=== PATIENT | male | born 1950 | race Caucasian/White ===

== ENCOUNTER 2025-03-26 18:52 | Emergency (ER) | payer MEDICARE, MEDICAID, SELFPAY ==
[2025-03-26] VITALS (20 sets, daily range): BP systolic 156–191; BP diastolic 77–96; PULSE 60–93; RESP 13–24; TEMP 36.4; O2SAT 96–100
--- NOTE | ~2025-03-26 | CT_ITS ---
EXAMINATION: CT brain wo con DATE: 03/26/2025 19:58 INDICATION: Weakness. TECHNIQUE: Computed tomography (CT) of the head was performed without intravenous contrast. The mA was adjusted according to patient size. Iterative reconstruction technique was employed. The dose-length product was 605.33 mGy-cm. COMPARISON: None FINDINGS: No acute intracranial bleed or extra-axial collections. Age- appropriate symmetric cerebral cortical atrophy. Chronic small vessel ischemic change. Mildly dilated lateral ventricles suggests mild degree of normal pressure hydrocephalus. No midline shift. IMPRESSION: 1. No acute intracranial lesions. 2. Chronic small vessel ischemic change. Suggestion of mild ventriculomegaly as mentioned above. Reviewed, dictated and finalized at location T. CE SHIFT COMMANDER
--- NOTE | ~2025-03-26 | CT_ITS ---
EXAMINATION: CT chest, abdomen and pelvis without contrast: DATE: 03/26/2025 INDICATION: Weakness, renal failure. TECHNIQUE: CT through chest abdomen and pelvis was performed without IV contrast and reviewed in multiple projections. COMPARISON: None. FINDINGS: No acute pulmonary lesions. No lymphadenopathy or effusion. Cardiomegaly is noted with mild ectasia of ascending aorta measuring 41 mm. Severe multivessel coronary artery calcifications. Significant calcific changes of aortic valve cusps. Below the diaphragm, no definite focal lesions of liver and spleen. Pancreas shows no acute findings. Significant diffuse fecal impaction of the colon especially severe impaction of the rectum. Gan catheter is noted within the bladder. Mild bilateral hydronephrosis. No free fluid or free air. IMPRESSION: 1. Limited noncontrast examination is not optimal to evaluate solid viscera, neoplasms and vascular structures. 2. No focal pulmonary lesions of acute nature. 3. Cardiomegaly with significant multivessel coronary artery calcifications. Calcific changes of aortic valve cusps indicating some degree of aortic stenosis. Please correlate with echocardiographic findings. 4. Severe fecal impaction of the rectum with large rectal fecal mass. Mild bilateral hydronephrosis without calculi. Reviewed, dictated and finalized at location T. S DESIGNER IMPRESSION: 1. Limited noncontrast examination is not optimal to evaluate solid viscera, ne oplasms and vascular structures. 2. No focal pulmonary lesions of acute nature. 3. Cardiomegaly with significant multivessel coronary artery calcifications. Ca lcific changes of aortic valve cusps indicating some degree of aortic stenosis. Please correlate with echocardiographic findings. 4. Severe fecal impaction of the rectum with large rectal fecal mass. Mild bila teral hydronephrosis without calculi.
--- OUTSIDE RECORDS SUMMARY | 2025-03-26 15:44 | XMS_ITS | Encounter Summary ---
Author Organization [facility] Address [facility] [place] [address] Care Team Providers Care Wind Turbine Service Technician Name Role Phone Alireza Lawrence MD Unavailable [phone] Alireza Lawrence MD Primary Care Provider [phone] Encounter Details Date Type Department Care Team (Late st Contact Info) Description 03/26/2025 3:44 PM [facility] Hospital Encounter [facility] [address] [place], [place] [id number] Danita Zelaya NP [address] [place] [id number] Social History Tobacco Use Types Packs/Day Years Used Date Smoking Tobacco: Former Cigarettes Q uit: 1984 Smokeless Tobacco: Never Alcohol Use Standard Drinks/Week Comments Not Currently 0 (1 standard drink = 0.6 oz pur e alcohol) [facility] Utilities Answer Date Recorded In the past 12 months has [employer], gas, oil, or water [employer] threatened to shut off services in your home? No 01/09/2024 Humiliation, Afraid, Rape, a nd Kick questionnaire Answer Date Recorded Within the last year, have y ou been afraid of your partner or ex-partner? Patient unable to answer 01/09/2024 Within the last year, have y ou been humiliated or emotionally abused in other ways by your partner or ex-partner? Patient unable to answer 01/09/2024 Within the last year, have y ou been kicked, hit, slapped, or otherwise physically hurt by your partner or ex-partner? Patient unable to answer 01/09/2024 Within the last year, have y ou been raped or forced to have any kind of sexual activity by your partner or ex-partner? Patient unable to answer 01/09/2024 Overall Financial Resource Strain (CARDIA) Answe r Date Recorded How hard is it for you to pa y for the very basics like food, housing, medical care, and heating? Not hard at all 01/09/2024 PHQ-2 Answer Date Recorded Patient Health Questionnaire-2 Score 0 03/10/2025 Hunger Vital Sign Answer Date Recorded Within the past 12 months, y ou worried that your food would run out before you got the money to buy more. Never true 01/09/20 Within the past 12 months, t he food you bought just didn't last and you didn't have money to get more. Never true 01/09/2024 PRAPARE - Transportation Answer Date Re corded In the past 12 months, has l ack of transportation kept you from medical appointments or from getting medications? Patient unable to answer 01/09/2024 In the past 12 months, has l ack of transportation kept you from meetings, work, or from getting things needed for daily living? Patient unable to answer 01/09/2024 Housing Stability Vital Sign Answer Rahul e Recorded In the last 12 months, was t here a time when you were not able to pay the mortgage or rent on time? No 01/09/2024 In the past 12 months, how m any times have you moved where you were living? 1 01/09/2024 At any time in the past 12 m [facility], were you homeless or living in a nursing home (including now)? No 01/09/2024 Sex and Gender Information Value Date Recorded Sex Assigned at Male 01/14/2025 2:04 PM CDT Legal Sex Male 6:10 PM CIRCUS TRAINER Gender Identity Male 01/14/2025 2:04 PM CDT Sexual Orientation Not on file documented as of this encounter Functional Status * Are you deaf or do you have serious difficulty hearing Answer Date of Assessment Author Status No 01/09/2024 1:03 PM CDT Kimberly Avendaño RN Active * Are you blind or do you have serious difficulty seeing, even when wearing glasses? Answer Date of Assessment Author Status No 01/09/2024 1:03 PM Kimberly Foster RN Active * Do you have serious difficulty walking or climbing stairs? Answer Date of Assessment Author Status No 01/09/2024 1:03 PM Kimberly Foster RN Active * Do you have difficulty dressing or bathing? Answer Date of Assessment Author Status Yes 01/09/2024 1:03 PM Kimberly Foster RN Active * Because of a physical, mental, or emotional condition, do you have difficulty doing errands alone such as visiting a doctor's office or shopping? Answer Date of Assessment Author Status Yes 01/09/2024 1:03 PM Kimberly Foster RN Active documented as of this encounter Mental Status * Because of a physical, mental, or emotional condition, do you have serious difficulty concentrating, remembering, or making decisions? Answer Entry Date Author Status Yes 01/09/2024 1:03 PM Kimberly Foster RN Active documented in this encounter Plan of Treatment Not on file documented as of this encounter Goals Goal Patient Goal Type Associated Problems Recent Progress Patient-Stated? Author Family - family caregiver with be involved in care transitions and discharge planning Lifestyle No Kiana Bowen RN documented as of this encounter Procedures Procedure Name Priority Date/Time Associated Diagnosis Comments VALPROIC ACID Routine 03/26/2025 3:52 PM CIRCUS TRAINER Encounter for therapeutic drug monitoring CBC W/DIFF Routine 03/26/2025 3:52 PM CIRCUS TRAINER Encounter for therapeutic drug monitoring BASIC METABOLIC PANEL Routine 03/26/2025 3:52 PM CIRCUS TRAINER Encounter for therapeutic drug monitoring documented in this encounter Results * (ABNORMAL) BASIC METABOLIC PANEL (03/26/2025 3:52 PM CIRCUS TRAINER) [facility] GLUCOSE 92 70 - 99 MG/DL 03/26/2025 4:18 PM CIRCUS TRAINER [facility] BUN 90(H) 7 - 18 MG/DL 03/26/2025 4:18 PM CIRCUS TRAINER [facility] CREATININE S/P/B 6.17() 0.7 - 1.3 MG/DL 03/26/2025 4:18 PM [facility] Comment: Critical Result(s) Called at: 16:17:50 on 03/26/2025 by: Jaylene Rodriguez to and read back by:DEMI VALDEZ @ [facility] SODIUM S/P/B 139 136 - 145 MMOL/L 03/26/2025 4:18 PM [facility] POTASSIUM S/P/B 5.2(H) 3.5 - 5.1 MMOL/L 03/26/2025 4:18 PM [facility] CHLORIDE S/P/B 107 100 - 108 MMOL/L 03/26/2025 4:18 PM [facility] CO2 22.0 21 - 32 MMOL/L 03/26/2025 4:18 PM [facility] CALCIUM S/P/B 8.5 8.5 - 10.1 MG/DL 03/26/2025 4:18 PM [facility] ANION GAP 10.0 5 - 15 MMOL/L 03/26/2025 4:18 PM [facility] BUN CREATININE RATIO 14.6 6 - 26 03/26/2025 4:18 PM [facility] GFR ESTIMATE 9(L) >90 ML/MIN/1.7 3 M2 03/26/2025 4:18 PM [facility] Comment: NOTE: eGFR is not calculated for patients <18 years of age. This is an estimated GFR calculation using the new CKD EPI creatinine equation without race and so does not require a correction factor for race. This estimated GFR should not be used for calculating drug doses. BLOOD VENOUS BLOOD SPECIMEN / Unknown 03/26/2025 3:52 PM CIRCUS TRAINER us Danita Zelaya [facility] Final Resu lt [facility] [address] [place] [address], [place] [phone] * (ABNORMAL) CBC W/DIFF (03/26/2025 3:52 PM CIRCUS TRAINER) [facility] Signature WBC 8.47 4.4 - 11.0 x10'3/uL 03/26/2025 3:58 PM CIRCUS TRAINER [facility] RBC 3.20(L) 4.50 - 5.90 x10'6/uL 03/26/2025 3:58 PM [facility] HGB 9.6(L) 14.0 - 17.5 G/DL 03/26/2025 3:58 PM [facility] HCT 29.2(L) 41.5 - 50.4 % 03/26/2025 3:58 PM [facility] MCV 91.3 80.0 - 96.0 FL 03/26/2025 3:58 PM [facility] MCH 30.0 26.5 - 31.4 PG 03/26/2025 3:58 PM CIRCUS TRAINER [facility] MCHC 32.9 31.9 - 34.8 G/DL 03/26/2025 3:58 PM [facility] RDW 13.2 12.3 - 14.3 % 03/26/2025 3:58 PM [facility] PLT 170 151 - 353 x10'3/uL 03/26/2025 3:58 PM [facility] MPV 9.9 9.7 - 11.9 FL 03/26/2025 3:58 PM [facility] RBC MORPHOLOGY NORMAL 03/26/2025 3:58 PM [facility] PLT MORPH. NORMAL 03/26/2025 3:58 PM [facility] WBC MORPHOLOGY NORMAL 03/26/2025 3:58 PM CIRCUS TRAINER [facility] LYMPHOCYTES % 9.7(L) 15.8 - 45.0 % 03/26/2025 3:58 PM CIRCUS TRAINER [facility] NEUTROPHILS % 80.7(H) 42.1 - 71.9 % 03/26/2025 3:58 PM CIRCUS TRAINER [facility] MONOCYTES % 6.4 5.7 - 12.5 % 03/26/2025 3:58 PM CIRCUS TRAINER [facility] EOSINOPHILS 2.4 0.0 - 5.6 % 03/26/2025 3:58 PM CIRCUS TRAINER [facility] BASOPHILS 0.6 0.0 - 1.3 % 03/26/2025 3:58 PM CIRCUS TRAINER [facility] ABS. NEUTROPHILS 6.84(H) 1.40 - 6.00 x10'3/uL 03/26/2025 3:58 PM CIRCUS TRAINER [facility] IMMATURE GRANS % 0.2 0.0 - 0.5 % 03/26/2025 3:58 PM CIRCUS TRAINER [facility] ABS. LYMPHOCYTES 0.82 0.80 - 4.70 x10'3/uL 03/26/2025 3:58 PM CIRCUS TRAINER [facility] BLOOD VENOUS BLOOD SPECIMEN / Unknown 03/26/2025 3:52 PM CIRCUS TRAINER us Danita Zelaya [facility] Final Resu lt [facility] [address] [place] [address], * (ABNORMAL) VALPROIC ACID (03/26/2025 3:52 PM CIRCUS TRAINER) VALPROIC ACID 7.1(L) 50 - 100 MCG/ML 03/26/2025 7:41 PM CIRCUS TRAINER [facility] Comment: THERAPEUTIC: 50-100 TOXIC: >150 BLOOD VENOUS BLOOD SPECIMEN / Unknown 03/26/2025 3:52 PM CIRCUS TRAINER us Danita Zelaya [facility] [facility] Final Resu lt [facility] [address] [place] [address], documented in this encounter Visit Diagnoses Diagnosis Encounter for therapeutic drug monitoring documented in this encounter Additional Health Concerns Infection Onset Date Last Indicated Resolved Time ESBL - Extended Spectrum Bet a-lactamase Comment:01/06/24 +ESBL Urine 03/07/24 Urine (RR) 01/06/2024 03/07/2024 Assessment Noted Time PHQ-9 Depression Total Score: 3 10/04/19 24 1:27 PM CDT documented as of this encounter Care Teams Wind Turbine Service Technician Relationship Specialty [place] [address] [place] [address] PCP - General FAMILY PRACTICE 09/13/24 [place] [address] [place] [address] FAMILY PRACTICE 01/06/24 documented as of this encounter
--- NOTE | 2025-03-26 19:13 | ECG_ITS ---
Test Date: 2025-03-26 19:43:55 Measurements Intervals [place] Rate: 71 P: 43 HI: 207 QRS: -71 QRSD: 140 T: 52 QT: 397 QTc: 433 Interpretive Statements SINUS RHYTHM RIGHT BUNDLE BRANCH BLOCK LEFT ANTERIOR FASCICULAR BLOCK CANNOT R/O SEPTAL INFARCT, AGE INDETERMINATE BASELINE ARTIFACT- I, II, III, AVR, AVL, AVF, V2, V4 ABNORMAL ECG No previous ECG available for comparison Electronically Signed On 03-26-2025 19:56:22 IMAGING ENGINEER by Jefferson Valenzuela D.O.
--- NOTE | 2025-03-26 19:13 | ED.GENADULT ---
HPI - General Adult General Chief complaint: Recheck/Abnormal Lab/Rx Stated complaint: ABN LABS, NEEDS DIALYSIS Time Seen by Provider: 03/26/25 19:06 Source: patient, EMS and RN notes reviewed Mode of arrival: EMS Limitations: dementia History of Present Illness HPI narrative: Patient is a 75-year-old male presents to the emergency department by EMS from [facility] for abnormal labs. Patient does not know ice here, patient denies any current complaints of than feeling a little bit cold and wants some blankets. Patient is alert oriented x1, EMS reports a history of dementia and baseline alert and oriented to self. EMS reports that the patient had abnormal labs with a creatinine of 6.1 and the facility wanted to get dialysis. Patient has a history of dialysis and has not had any in years. Patient has a reported history of COPD, hypertension, CKD stage 4, GERD. Related Data Allergies Allergy/AdvReac Type Severity Reaction Status Date / Time finasteride Allergy Unknown Unknown Verified 03/26/25 19:04 hydrocodone Allergy Unknown Unknown Verified 03/26/25 19:04 hydrocortisone Allergy Unknown Unknown Verified 03/26/25 19:04 Review of Systems Review of Systems: ROS unobtainable: Yes unobtainable due to mental status Exam Narrative: CONST: No acute distress. HENMT: Head is normocephalic and atraumatic. Tacky mucous membranes. No posterior oropharynx erythema. EYES: No scleral icterus. No conjunctival injection or pallor. PERRL. NECK: No meningeal signs. RESP: Able to speak in full sentences. Normal respiratory effort. CTAB. CARDIO: Regular rate. [Regular] rhythm. 2+ DP and radial pulses bilaterally. GI: Nondistended. No tenderness to palpation. Soft. : No CVA tenderness to palpation. Gan catheter in place draining straw cloudy colored urine. SKIN: No rashes or lesions noted on exposed skin. NEURO: Oriented x1. Moves all extremities. Follows basic commands. EXTREM/MSK/BACK: No pedal edema. PSYCH: Normal affect. Course Vital Signs Vital signs: Vital Signs Temperature 97.6 F 03/26/25 18:53 Pulse Rate 66 03/26/25 18:53 Respiratory Rate 14 03/26/25 18:53 Blood Pressure 177/90 H 03/26/25 18:53 Pulse Oximetry 100 03/26/25 18:53 Oxygen Delivery Room Air 03/26/25 18:53 Temperature 97.6 F 03/26/25 18:53 Pulse Rate 66 03/26/25 19:37 Respiratory Rate 17 03/26/25 19:37 Blood Pressure 158/84 H 03/26/25 19:37 Pulse Oximetry 100 03/26/25 19:37 Oxygen Delivery Room Air 03/26/25 18:53 [facility] Narrative Medical decision making narrative: Patient presents with the above complaint. Initial vitals are remarkable for no significant abnormalities. Physical examination as noted above. Plan discussed: laboratory analysis, EKG, imaging. Patient ordered continuous cardiac monitoring, continuous pulse oximetry. Records from [facility] reported creatinine of 6.17, primary care physician is Dr. Alireza guillaume for, patient is a full code, patient is listed as is responsible democrat for healthcare decision maker with emergency contact being son whose name is Mark Hernandez and is also listed is the POA whose cell phone number is [phone]. Medical history includes COPD, CKD stage 4, hypertension, polyneuropathy, peripheral vascular disease, BPH, obstructive uropathy, end-stage renal disease, hyperlipidemia, GERD, neuromuscular dysfunction of bladder, anemia, anxiety, depression, dementia. Patient has been in the long-term facility for 193 days. discussion with nurse from long-term facility reports that the patient still makes urine and put out 1 L of urine today. I spoke with the son Mark who is the POA who notes the patient is a full code, does not want any hemodialysis to be performed, discussed plan at this time to hydrate the patient, recheck the metabolic panel and kidney function and ultimately get patient back to his facility with plans to have him be monitored there for his urine output and routine labs to keep an eye on his kidney function which son notes is a reasonable plan and agrees with plan of care. No symptoms a UTI, urine sample was obtained from the Gan catheter in place, no indications to treat for any UTI at this time. No indications for any emergent dialysis, patient is making good urine, repeat BMP obtained. Son also notes he does not want any hemodialysis regardless. Will order a bowel regimen for the patient given the fecal impaction. Repeat BMP shows continued improvement in the creatinine down to 5.64. Differential Diagnosis Differential Diagnosis: Renal failure, UTI, metabolic derangement, electrolyte derangement. Lab Data [facility] Attestation statement: I personally reviewed the patient's lab results. Lab results narrative: CBC reveals a hemoglobin of 9.8. Coags are within normal limits. Comprehensive metabolic panel reveals a sodium 135, chloride 109, bicarb 17, BUN of 85 from a creatinine of 5.89, glucose 132. Lipase is 206. Total creatine kinase is 84. Magnesium is 2.0. Covid flu and RSV testing are negative. 03/26/25 19:33 03/26/25 22:42 Labs: Lab Results 03/26/25 03/26/25 03/26/25 Range/Units 19:33 19:33 19:33 WBC 9.9 (4.5-10.0) K/mm3 RBC 3.25 L (4.6-6.20) M/mm3 Hgb 9.8 L (14.0-18.0) g/dL Hct 30.1 L (42.0-52.0) % MCV 92.6 (80-100) fl MCH 30.2 (26-34) pg MCHC 32.6 (32-36) g/dl RDW 13.4 (11.5-14.5) % Plt Count 181 (150-375) k/mm3 MPV 9.9 (7.4-10.4) fl Immature Gran % (Auto) 0.4 (0-0.5) % Neut % (Auto) 83.8 H (45.5-73.1) % Lymph % (Auto) 7.9 L (18.3-44.2) % Dixon % (Auto) 5.9 (2.6-8.5) % Eos % (Auto) 1.4 (0-4.4) % Baso % (Auto) 0.6 (0.2-1.2) % Lymph # (Auto) 0.78 L (0.9-3.2) K/mm3 Dixon # (Auto) 0.6 (0.1-0.6) K/mm3 Eos # (Auto) 0.1 (0-0.3) K/mm3 Baso # (Auto) 0.1 (0.0-0.1) K/mm3 Abs Immat Gran (auto) 0.04 H (0.00-0.031) K/mm3 Absolute Neuts (auto) 8.3 H (1.3-6.7) K/mm3 Absolute Nucleated RBC 0.000 (0.0-0.012) K/mm3 Nucleated RBC % 0.0 (0.0-0.2) % PT 14.4 (11.1-14.7) Seconds INR 1.1 APTT 28.5 (22.3-36.8) Seconds Sodium 135 L (137-145) mmol/L Potassium 4.9 (3.4-5.0) mmol/L Chloride 109 H (98-107) mmol/L Carbon Dioxide 17 L (22-30) mmol/L Anion Gap 9 (4-12) mmol/L BUN 85 H (9-20) mg/dL Creatinine 5.89 H (0.7-1.3) mg/dL Estim Creat Clear Calc 9 ml/min Estimated GFR 9 L (59 - ) Glucose 132 H (65-110) mg/dL Calcium 9.0 (8.4-10.2) mg/dL Magnesium 2.0 Cancelled (1.6-2.3) mg/dL Total Bilirubin 0.5 (0.2-1.3) mg/dL AST 18 (17-59) U/L ALT 17 (6-50) U/L Alkaline Phosphatase 67 (38-126) U/L Total Creatine Kinase 84 (55-170) U/L Troponin I < 0.012 Pending (0.000-0.034) ng/mL Total Protein 7.0 (6.3-8.2) g/dL Albumin 4.0 (3.5-5.1) g/dL Lipase 206 (23-300) U/L TSH (Reflex) (0.465-4.68) uIU/mL Urine Color (Yellow) Urine Appearance (Clear) Urine pH (5.0-9.0) Ur Specific [place] (1.001-1.035) Urine Protein (Negative) mg/dL Urine Glucose (UA) (Negative) mg/dL Urine Ketones (Negative) mg/dL Ur Blood (Man) (Negative) Urine Nitrate (Negative) Urine Bilirubin (Negative) Urine Urobilinogen (<2.0) mg/dL Add Ur Microanalysis Leukocyte Esterase Rfl (Negative) ROS/UL Urine RBC (0-2) /hpf Urine WBC (0-3) /hpf Ur Squamous Epith Cells (Few) /hpf Urine Bacteria /hpf Urine Casts Urine Yeast (Budding) (None) /hpf Influenza A (RT-PCR) (Negative) Influenza B (RT-PCR) (Negative) RSV (RT-PCR) (Negative) SARS-CoV-2 RNA (RT-PCR) (Negative) 03/26/25 03/26/25 03/26/25 Range/Units 19:33 20:14 22:42 WBC (4.5-10.0) K/mm3 RBC (4.6-6.20) M/mm3 Hgb (14.0-18.0) g/dL Hct (42.0-52.0) % MCV (80-100) fl MCH (26-34) pg MCHC (32-36) g/dl RDW (11.5-14.5) % Plt Count (150-375) k/mm3 MPV (7.4-10.4) fl Immature Gran % (Auto) (0-0.5) % Neut % (Auto) (45.5-73.1) % Lymph % (Auto) (18.3-44.2) % Dixon % (Auto) (2.6-8.5) % Eos % (Auto) (0-4.4) % Baso % (Auto) (0.2-1.2) % Lymph # (Auto) (0.9-3.2) K/mm3 [place] # (Auto) (0.1-0.6) K/mm3 Eos # (Auto) (0-0.3) K/mm3 Baso # (Auto) (0.0-0.1) K/mm3 Abs Immat Gran (auto) (0.00-0.031) K/mm3 Absolute Neuts (auto) (1.3-6.7) K/mm3 Absolute Nucleated RBC (0.0-0.012) K/mm3 Nucleated RBC % (0.0-0.2) % PT (11.1-14.7) Seconds INR APTT (22.3-36.8) Seconds Sodium 136 L (137-145) mmol/L Potassium 4.7 (3.4-5.0) mmol/L Chloride 112 H (98-107) mmol/L Carbon Dioxide 17 L (22-30) mmol/L Anion Gap 7 (4-12) mmol/L BUN 80 H (9-20) mg/dL Creatinine 5.64 H (0.7-1.3) mg/dL Estim Creat Clear Calc 10 ml/min Estimated GFR 10 L (59 - ) Glucose 115 H (65-110) mg/dL Calcium 8.4 (8.4-10.2) mg/dL Magnesium (1.6-2.3) mg/dL Total Bilirubin (0.2-1.3) mg/dL AST (17-59) U/L ALT (6-50) U/L Alkaline Phosphatase (38-126) U/L Total Creatine Kinase (55-170) U/L Troponin I (0.000-0.034) ng/mL Total Protein (6.3-8.2) g/dL Albumin (3.5-5.1) g/dL Lipase Cancelled (23-300) U/L TSH (Reflex) 1.230 (0.465-4.68) uIU/mL Urine Color Yellow (Yellow) Urine Appearance Turbid H (Clear) Urine pH 7.0 (5.0-9.0) Ur Specific [place] 1.012 (1.001-1.035) Urine Protein 2+ H (Negative) mg/dL Urine Glucose (UA) 1+ H (Negative) mg/dL Urine Ketones Negative (Negative) mg/dL Ur Blood (Man) 2+ H (Negative) Urine Nitrate Negative (Negative) Urine Bilirubin Negative (Negative) Urine Urobilinogen 0.2 (<2.0) mg/dL Add Ur Microanalysis Yes Leukocyte Esterase Rfl 3+ H (Negative) ROS/UL Urine RBC 6-10 H (0-2) /hpf Urine WBC >100 H (0-3) /hpf Ur Squamous Epith Cells None seen (Few) /hpf Urine Bacteria 4+ H /hpf Urine Casts 3-5 Urine Yeast (Budding) Present H (None) /hpf Influenza A (RT-PCR) Negative (Negative) Influenza B (RT-PCR) Negative (Negative) RSV (RT-PCR) Negative (Negative) SARS-CoV-2 RNA (RT-PCR) Negative (Negative) Imaging Data Radiologist's impression: ITS Impressions Head CT 03/26/25 20:00 IMPRESSION: 1. No acute intracranial lesions. 2. Chronic small vessel ischemic change. Suggestion of mild ventriculomegaly as mentioned above. Chest/Abdomen/Pelvis CT 03/26/25 20:02 IMPRESSION: 1. Limited noncontrast examination is not optimal to evaluate solid viscera, neoplasms and vascular structures. 2. No focal pulmonary lesions of acute nature. 3. Cardiomegaly with significant multivessel coronary artery calcifications. Calcific changes of aortic valve cusps indicating some degree of aortic stenosis. Please correlate with echocardiographic findings. 4. Severe fecal impaction of the rectum with large rectal fecal mass. Mild bilateral hydronephrosis without calculi. ECG Data EKG #1: Attestation: I personally reviewed and interpreted this ECG as follows: ECG completion date: 03/26/25 ECG completion time: 19:43 Interpretation: Rate of 71, rhythm is sinus rhythm, right bundle-branch block, left anterior fascicular block, baseline artifact, no previous EKG on file for comparison. Discharge Plan Discharge Clinical Impression: Renal failure, Dehydration, Fecal impaction Patient Disposition: NH Longterm/Asst Living Condition: Stable Instructions: Antibiotic Form, Acute Kidney Injury (DC), Chronic Kidney Disease (ED), Fecal Impaction (ED) Additional Instructions: Follow-up with your primary care physician in the next 2-3 days for reassessment, rest and stay well hydrated, take your home medications as prescribed. Take the lactulose as prescribed. Administer enemas as needed. Have your doctor monitor your kidney function with serial labs and also monitor your urine output for any marked decrease. Your son is aware of the results and plan of care, your kidney function is overall improving, son notes that he does not want any hemodialysis to be done. Regardless there is no indications for any emergent hemodialysis. Return immediately to the emergency department for any new or concerning symptoms especially any emergent concerns for life, limb, eyesight. Patient's creatinine progressively improved from 5.89 to 5.64 with fluids, please ensure that the patient states well-hydrated. Patient Language: Amharic Prescriptions: New lactulose 20 gram packet 20 g PO DAILY PRN (Reason: constipation) Qty: 15 0RF bisacodyl 10 mg/30 mL enema 10 mg RECTAL DAILY PRN (Reason: constipation) Qty: 37 0RF bisacodyl 10 mg suppository 10 mg RECTAL DAILY PRN (Reason: constipation) Qty: 30 0RF Follow-up/Referrals: Howard,Alireza Sanderson MD [Primary Care Provider] - 2 Days Stand Alone Forms: Care Home Discharge Time of Disposition: 23:03
[2025-03-26 19:42] LABS: Hematocrit 30.1 % (42.0-52.0); Hemoglobin 9.8 g/dL (14.0-18.0); Immature Granulocyte Percent A 0.4 % (0-0.5); Lymphocytes Absolute Auto 0.78 K/mm3 (0.9-3.2); Mean Corpuscular HGB Conc 32.6 g/dl (32-36); Mean Corpuscular Hemoglobin 30.2 pg (26-34); Mean Corpuscular Volume 92.6 fl (80-100); Nucleated Red Blood Cells Absolute Auto 0.000 K/mm3 (0.0-0.012); Nucleated Red Blood Cells Perc 0.0 % (0.0-0.2); Platelet Count Result 181 k/mm3 (150-375); Red Blood Count 3.25 M/mm3 (4.6-6.20); White Blood Count 9.9 K/mm3 (4.5-10.0)
[2025-03-26 19:53] LABS: INR 1.1; Prothrombin Time 14.4 Seconds (11.1-14.7)
[2025-03-26 19:54] LABS: Partial Thromboplastin Time 28.5 Seconds (22.3-36.8)
[2025-03-26 19:57] LABS: Alanine Aminotransferase 17 U/L (6-50); Albumin Level 4.0 g/dL (3.5-5.1); Alkaline Phosphatase 67 U/L (38-126); Anion Gap 9 mmol/L (4-12); Aspartate Amino Transferase 18 U/L (17-59); Bilirubin,Total 0.5 mg/dL (0.2-1.3); Blood Urea Nitrogen 85 mg/dL (9-20); Calcium 9.0 mg/dL (8.4-10.2); Carbon Dioxide 17 mmol/L (22-30); Chloride 109 mmol/L (98-107); Creatine Kinase 84 U/L (55-170); Estimated CRCL calculation 9 ml/min; Estimated Glomerular Filt Rate 9; Glucose 132 mg/dL (65-110); Lipase 206 U/L (23-300); Magnesium 2.0 mg/dL (1.6-2.3); Potassium 4.9 mmol/L (3.4-5.0); Sodium 135 mmol/L (137-145); Total Protein 7.0 g/dL (6.3-8.2)
[2025-03-26 20:09] LABS: Troponin I < 0.012 ng/mL (0.000-0.034)
[2025-03-26] MEDS: SODIUM CHLORIDE 0.9% IV 1,000 ML 999 ML IV CONT ×2 (20:15→21:00)
[2025-03-26 20:17] LABS: Influenza A QL RT-PCR Negative (Negative); Influenza B QL RT-PCR Negative (Negative); RSV RNA, RT-PCR Negative (Negative); SARS-CoV-2 RNA PCR Negative (Negative)
[2025-03-26 20:29] LABS: Thyroid Stimulating Hormone Reflex 1.230 uIU/mL (0.465-4.68)
[2025-03-26 20:31] LABS: Add Urine Microscopic? YES; Appearance Urine Turbid (Clear); Glucose Urine UA 1+ mg/dL (Negative); Leukocyte Esterase Ur 3+ LEU/UL (Negative); Nitrate Urine Negative (Negative); Specific Grav Ur 1.012 (1.001-1.035)
[2025-03-26 20:59] LABS: Budding Yeast Urine Present /hpf
[2025-03-26 21:01] LABS: Need Manual Microscopic Yes
--- NOTE | 2025-03-26 21:04 | PC.NURSE ---
This RN called pt JACEY Flores per EDP request and asked about pt wishes regarding dialysis and discharge. POA reports no dialysis, but pt is full code. EDP made aware.
--- OUTSIDE RECORDS SUMMARY | 2025-03-26 21:16 | XMS_ITS | Encounter Summary ---
Author Organization [facility] Address [facility] [place] [address] Care Team Providers Care Automatic Shirring Machine Operator Name Role Phone Alireza Lawrence MD Unavailable [phone] Alireza Lawrence MD Primary Care Provider [phone] Encounter Details Date Type Department Care Team (Late st Contact Info) Description 03/26/2025 Orders Only [facility] [address] [place], [place] [id number] Danita Zelaya CLINICAL TRAINING COORDINATOR [address] [place] [phone] Social History Tobacco Use Types Packs/Day Years Used Date Smoking Tobacco: Former Cigarettes Q uit: 1984 Smokeless Tobacco: Never Alcohol Use Standard Drinks/Week Comments Not Currently 0 (1 standard drink = 0.6 oz pur e alcohol) [facility] Utilities Answer Date Recorded In the past 12 months has [employer], gas, oil, or water [facility] threatened to shut off services in your [...] any time in the past 12 m [facility], were you homeless or living in a chcf (including now)? No 01/09/2024 Sex and Gender Information Value Date Recorded Sex Assigned at Male 01/14/2025 2:04 PM CDT Legal Sex Male 6:10 PM MOLD INSERT CHANGER Gender Identity Male 01/14/2025 2:04 PM CDT [...] Bowen RN documented as of this encounter Results * (ABNORMAL) VALPROIC ACID (03/26/2025 3:52 PM MOLD INSERT CHANGER) Pathologist [facility] VALPROIC ACID 7.1(L) 50 - 100 MCG/ML 03/26/2025 7:41 PM MOLD INSERT CHANGER [facility] Comment: THERAPEUTIC: 50-100 TOXIC: >150 BLOOD VENOUS BLOOD SPECIMEN / Unknown 03/26/2025 3:52 PM MOLD INSERT CHANGER us Danita Zelaya CLINICAL TRAINING COORDINATOR LABORATORY Final Resu lt [facility] [address] [place] [address], [place] [phone] * (ABNORMAL) CBC W/DIFF (03/26/2025 3:52 PM MOLD INSERT CHANGER) [facility] WBC 8.47 4.4 - 11.0 x10'3/uL 03/26/2025 3:58 PM [facility] RBC 3.20(L) 4.50 - 5.90 x10'6/uL 03/26/2025 3:58 PM [facility] HGB 9.6(L) 14.0 - 17.5 G/DL 03/26/2025 3:58 PM [facility] HCT 29.2(L) 41.5 - 50.4 % 03/26/2025 3:58 PM [facility] MCV 91.3 80.0 - 96.0 FL 03/26/2025 3:58 PM [facility] MCH 30.0 26.5 - 31.4 PG 03/26/2025 3:58 PM [facility] MCHC 32.9 31.9 - 34.8 G/DL 03/26/2025 3:58 PM [facility] RDW 13.2 12.3 - 14.3 % 03/26/2025 3:58 PM [facility] PLT 170 151 - 353 x10'3/uL 03/26/2025 3:58 PM [facility] MPV 9.9 9.7 - 11.9 FL 03/26/2025 3:58 PM [facility] RBC MORPHOLOGY NORMAL 03/26/2025 3:58 PM [facility] PLT MORPH. NORMAL 03/26/2025 3:58 PM [facility] WBC MORPHOLOGY NORMAL 03/26/2025 3:58 PM [facility] LYMPHOCYTES % 9.7(L) 15.8 - 45.0 % 03/26/2025 3:58 PM [facility] NEUTROPHILS % 80.7(H) 42.1 - 71.9 % 03/26/2025 3:58 PM MOLD INSERT CHANGER [facility] MONOCYTES % 6.4 5.7 - 12.5 % 03/26/2025 3:58 PM [facility] EOSINOPHILS 2.4 0.0 - 5.6 % 03/26/2025 3:58 PM [facility] BASOPHILS 0.6 0.0 - 1.3 % 03/26/2025 3:58 PM [facility] ABS. NEUTROPHILS 6.84(H) 1.40 - 6.00 x10'3/uL 03/26/2025 3:58 PM [facility] IMMATURE GRANS % 0.2 0.0 - 0.5 % 03/26/2025 3:58 PM [facility] ABS. LYMPHOCYTES 0.82 0.80 - 4.70 x10'3/uL 03/26/2025 3:58 PM [facility] BLOOD VENOUS BLOOD SPECIMEN / Unknown 03/26/2025 3:52 PM MOLD INSERT CHANGER us Danita Zelaya NP LABORATORY Final Resu lt [facility] [address] [place] [address], * (ABNORMAL) BASIC METABOLIC PANEL (03/26/2025 3:52 PM MOLD INSERT CHANGER) GLUCOSE 92 70 - 99 MG/DL 03/26/2025 4:18 PM MOLD INSERT CHANGER [facility] BUN 90(H) 7 - 18 MG/DL 03/26/2025 4:18 PM [facility] CREATININE S/P/B 6.17(HH) 0.7 - 1.3 MG/DL 03/26/2025 4:18 PM [facility] Comment: Critical Result(s) Called at: 16:17:50 on 03/26/2025 by: Jaylene Rodriguez to and read back by:DEMI VALDEZ @ [facility] SODIUM S/P/B 139 136 - 145 MMOL/L 03/26/2025 4:18 PM [facility] POTASSIUM S/P/B 5.2(H) 3.5 - 5.1 MMOL/L 03/26/2025 4:18 PM [facility] CHLORIDE S/P/B 107 100 - 108 MMOL/L 03/26/2025 4:18 PM [facility] CO2 22.0 21 - 32 MMOL/L 03/26/2025 4:18 PM [facility] CALCIUM S/P/B 8.5 8.5 - 10.1 MG/DL 03/26/2025 4:18 PM [facility] ANION GAP 10.0 5 - 15 MMOL/L 03/26/2025 4:18 PM [facility] BUN CREATININE RATIO 14.6 6 - 26 03/26/2025 4:18 PM [facility] GFR ESTIMATE 9(L) >90 ML/MIN/1.7 3 M2 03/26/2025 4:18 PM [facility] Comment: NOTE: eGFR is not calculated for patients <18 years of age. This is an estimated GFR calculation using the new CKD EPI creatinine equation without race and so does not require a correction factor for race. This estimated GFR should not be used for calculating drug doses. 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
--- OUTSIDE RECORDS SUMMARY | 2025-03-26 21:16 | XMS_ITS | Clinical Summary ---
Author Organization [facility] Address [address] [place] [address] Care Team Providers Care Associate Professor Of Psychology Name Role Phone Alireza Lawrence MD Unavailable Alireza Lawrence MD Primary Care Provider Allergies Active Allergy Reactions Criticality Noted Date Comments Finasteride Unknown 01/25/2021 Hydrocodone Unknown 01/25/2021 Pt has tolerated dilaudid States can't recall his reaction Hydrocortisone Unknown 01/26/2021 Medications donepezil (ARICEPT) 5 MG Tab Take 2 tablets (10 mg total) by mouth nightly at bedtime. 4 Active omeprazole (PRILOSEC) 20 MG capsuleIndications: Gastroesophageal reflux disease without esophagitis Take 1 capsule (20 mg total) by mouth daily. 30 capsule 1 4 Active amLODIPine (NORVASC) 5 MG tabletIndications:H ypertension, unspecified type Take 1 tablet (5 mg total) by mouth daily. 30 tablet 1 4 Active bethanechol (URECHOLINE) 10 MG tablet Take 1 tablet (10 mg total) by mouth 3 (three) times daily. Active ondansetron (ZOFRAN) 4 MG tablet Take 1 tablet (4 mg total) by mouth every 6 (six) hours as needed for Nausea. 4 Active FLUoxetine (PROZAC) 40 MG capsule Take 1 capsule (40 mg total) by mouth daily. Active calcium carbonate (TUMS) 500 MG chewable tablet Chew 1 tablet (500 mg total) by mouth 3 (three) times daily as needed. 4 Active lidocaine 4 % patch Place 1 patch onto the skin daily. Remove & Discard patch within 12 hours or as directed by 4 Active QUEtiapine (SEROQUEL) 25 MG tablet Take 1 tablet (25 mg total) by mouth nightly as needed. 4 Active sodium bicarbonate 650 MG tabletIndications:M etabolic acidosis Take 1 tablet (650 mg total) by mouth 2 (two) times daily. 4 Active polyethylene glycol (GLYCOLAX) packet Take 240 mLs (17 g total) by mouth daily as needed for Constipation . Dissolve powder in 240 mL water 4 Active ertapenem (INVANZ) 1 g injection 4 Active busPIRone (BUSPAR) 10 MG tablet 5 Active ondansetron (ZOFRAN-ODT) 4 MG disintegrating tablet 4 Active rOPINIRole (REQUIP) 0.25 MG tablet 5 Active busPIRone (BUSPAR) 15 MG tablet 5 Active Active Problems Problem Noted Date Diagnosed Date Sepsis due to pneumonia 01/08/2024 MAGDI (acute kidney injury) 01/06/2024 Gastroesophageal reflux disease without esophagi tis 12/09/2023 PAD (peripheral artery disease) 12/09/2023 Pneumonia of right upper lobe due to infectious organism 12/26/2022 Urinary tract infection asso ciated with indwelling urethral catheter, initial encounter 12/19/2022 Moderate protein-calorie malnutrition 10/03/2022 Acute metabolic encephalopathy 09/28/2022 Neurogenic bladder 09/28/2022 Peritonitis 09/28/2022 Small bowel obstruction 09/28/2022 ESRD (end stage renal disease) 10/01/2021 Overview (01/06/2024): Added automatically from request for surgery [id number] Acute cystitis 08/13/2021 Cystitis with hematuria 08/12/2021 Recurrent major depressive disorder, in full rem ission 05/13/2021 Overview (01/06/2024): Last Assessment & Plan: Plan to continue home prozac, seroquel Complicated urinary tract infection 05/13/2021 Overview (01/06/2024): Last Assessment & Plan: Continue cefepime. Follow cultures. Normal lactate at 0.7. Chronic reflux esophagitis 06/20/2020 Traumatic hematuria 06/20/2020 Bilateral hydronephrosis 06/19/2020 BPH with urinary obstruction 06/19/2020 Iron deficiency anemia 06/19/2020 NSAID long-term use 06/19/2020 Obstructive uropathy 06/19/2020 Acute renal failure superimposed on chronic kidn ey disease 06/19/2020 Overview (01/06/2024): Last Assessment & Plan: Continue with IV antibiotics, IVF. Close lab monitoring. Nephrology, Dr. Saab, has been consulted. Creatinine slightly improved today Anemia due to blood loss 06/18/2020 Overview (01/06/2024): Added automatically from request for surgery [id number] Hypertension Hyperlipidemia Anxiety Encounters Date Type Department Care Team Description 03/26/2025 3:44 PM TECHNOLOGY ENGINEER Hospital Encounter [facility] [address] [place] [address] Danita Zelaya NP 03/26/2025 Orders Only [facility] [address] [place] [address] Danita Zelaya NP 03/11/2025 1:40 PM [facility] Skilled Nursing [facility] Family [facility] Internal Medicine [facility] [address] [place] [address] Alireza Lawrence MD Skilled Nursing (Routine C) 02/15/2025 4:00 PM CDT - 02/15/2025 9:[address] [facility] [address] [place] [address] Nikita Osborne MD Palmer, Aunaly E, MD Medical Screening Discharge Disposition: Home or Self Care (Routine Discharge) 02/15/2025 Travel 01/14/2025 3:00 PM CDT Skilled Nursing [facility] Family [facility] Internal Medicine [facility] [address] [place] [address] Alireza Lawrence MD Skilled Nursing (routine) 12/27/2024 Orders Only [facility] [address] [place] [address] Danita Zelaya NP 12/26/2024 9:39 AM CDT - 12/26/2024 11:59 PM CDT Hospital Encounter [facility] [address] [place] [address] Danita Zelaya MACHINE STOPPAGE FREQUENCY CHECKER Discharge Disposition: Home or Self Care (Routine Discharge) from Last 3 Months Immunizations Immunization Administration Dates Next Due Abrysvo Respiratory Syncytial Virus (RSV) 0.5 mL , PF 05/12/2023 PFIZER COVID-19 (ORIGINAL FO RMULATION, PURPLE CAP) mRNA, LNP-S, PF, 30 MCG/0.3 ML DOSE 11/26/2020,11/05/2020 Family History Relation Status Comments Father Mother Social History Tobacco Use Types Packs/Day Years Used Date Smoking Tobacco: Former Cigarettes Q uit: 1984 Smokeless Tobacco: Never Tobacco Cessation:Counseling Given: No Alcohol Use Standard Drinks/Week Comments Not Currently 0 (1 standard drink = 0.6 oz pur e alcohol) [facility] Utilities Answer Date Recorded In the past 12 months has e electric, gas, oil, or water [employer] threatened to shut off services in your [...] any time in the past 12 m [facility], were you homeless or living in a fdc (including now)? No 01/09/2024 Sex and Gender Information Value Date Recorded Sex Assigned at Male 01/14/2025 2:04 PM CDT Legal Sex Male 6:10 PM TECHNOLOGY ENGINEER Gender Identity Male 01/14/2025 2:04 PM CDT Sexual Orientation Not on file Last Filed Vital Signs Vital Sign Reading Time Taken Comments Blood Pressure 129/68 03/10/2025 9:36 AM TECHNOLOGY ENGINEER Pulse 79 03/10/2025 9:36 AM TECHNOLOGY ENGINEER Temperature 36.6 C (97.8 F) 03/10/2025 9:36 AM TECHNOLOGY ENGINEER Respiratory Rate 18 03/10/2025 9:36 AM TECHNOLOGY ENGINEER Oxygen Saturation 97% 03/10/2025 9:36 AM TECHNOLOGY ENGINEER Inhaled Oxygen Concentration - - Weight 60.8 kg (134 lb) 03/10/2025 9:36 AM TECHNOLOGY ENGINEER Height 172.7 cm (5' 8) 03/10/2025 9:36 AM TECHNOLOGY ENGINEER Body Mass Index 20.37 03/10/2025 9:36 AM TECHNOLOGY ENGINEER Plan of Treatment Health Maintenance Due Date Last Done Comments ASCVD LDL 1950 Colorectal Cancer Screening Colonoscopy (10 Years) 1950 Hepatitis C 01/21/1968 DTaP, Tdap and Td Vaccines (1 - Tdap) 1969 Pneumococcal Vaccine: 50+ Years (1 of 1 - PCV) 01/21/2000 Zoster Vaccines (1 of 2) 01/21/2000 COVID-19 Vaccine (3 - season) 2024 11/26/2020, 11/05/2020 Influenza Adult (#1) 2025 RSV Immunization or 60+ Years Completed 05/12/2023 AAA SCREENING Completed 02/17/2024, 12/17, 09/27/2022, Additional history exists PHQ-2 (Physician [place]) Completed 03/10/2025 Hepatitis A Vaccines Aged Out No long er eligible based on patient's age to complete this topic Meningococcal B Vaccine Aged Out No l onger eligible based on patient's age to complete this topic Meningococcal Vaccine Aged Out No joshua job eligible based on patient's age to complete this topic RSV Immunizations Under 20 Months Aged Out No longer eligible based on patient's age to complete this topic Goals Goal Patient Goal Type Associated Problems Recent Progress Patient-Stated? Author Family - family caregiver with be involved in care transitions and discharge planning Lifestyle No Kiana Bowen sas developer Procedure Name Priority Date/Time Associated Diagnosis Comments BASIC METABOLIC PANEL Routine 03/26/2025 3:52 PM TECHNOLOGY ENGINEER Encounter for therapeutic drug monitoring CBC W/DIFF Routine 03/26/2025 3:52 PM TECHNOLOGY ENGINEER Encounter for therapeutic drug monitoring VALPROIC ACID Routine 03/26/2025 3:52 PM TECHNOLOGY ENGINEER Encounter for therapeutic drug monitoring HC CULTURE URINE W/COLONY CT Routine 12/26/2024 5:00 PM CDT UTI (urinary tract infection) HC URINALYSIS AUTO W/MICRO Routine 12/26/2024 5:00 PM CDT UTI (urinary tract infection) CT ABD+PEL WO CON STAT 02/17/2024 8:5 7 PM CDT from Last 3 Months or Most Recently Relevant to Health Maintenance Results * (ABNORMAL) VALPROIC ACID (03/26/2025 3:52 PM TECHNOLOGY ENGINEER) [facility] VALPROIC ACID 7.1(L) 50 - 100 MCG/ML 03/26/2025 7:41 PM TECHNOLOGY ENGINEER [facility] Comment: THERAPEUTIC: 50-100 TOXIC: >150 BLOOD VENOUS BLOOD SPECIMEN / Unknown 03/26/2025 3:52 PM TECHNOLOGY ENGINEER Dainta Zelaya MACHINE STOPPAGE FREQUENCY CHECKER LABORATORY Final Resu lt [facility] [address] [place] [address], [place] [phone] * (ABNORMAL) CBC W/DIFF (03/26/2025 3:52 PM TECHNOLOGY ENGINEER) [facility] WBC 8.47 4.4 - 11.0 x10'3/uL 03/26/2025 3:58 PM TECHNOLOGY ENGINEER [facility] RBC 3.20(L) 4.50 - 5.90 x10'6/uL 03/26/2025 3:58 PM TECHNOLOGY ENGINEER [facility] HGB 9.6(L) 14.0 - 17.5 G/DL 03/26/2025 3:58 PM TECHNOLOGY ENGINEER [facility] HCT 29.2(L) 41.5 - 50.4 % 03/26/2025 3:58 PM [facility] MCV 91.3 80.0 - 96.0 FL 03/26/2025 3:58 PM [facility] MCH 30.0 26.5 - 31.4 PG 03/26/2025 3:58 PM [facility] MCHC 32.9 31.9 - 34.8 G/DL 03/26/2025 3:58 PM [facility] RDW 13.2 12.3 - 14.3 % 03/26/2025 3:58 PM [facility] PLT 170 151 - 353 x10'3/uL 03/26/2025 3:58 PM [facility] MPV 9.9 9.7 - 11.9 FL 03/26/2025 3:58 PM [facility] RBC MORPHOLOGY NORMAL 03/26/2025 3:58 PM [facility] PLT MORPH. NORMAL 03/26/2025 3:58 PM [facility] WBC MORPHOLOGY NORMAL 03/26/2025 3:58 PM [facility] LYMPHOCYTES % 9.7(L) 15.8 - 45.0 % 03/26/2025 3:58 PM [facility] NEUTROPHILS % 80.7(H) 42.1 - 71.9 % 03/26/2025 3:58 PM [facility] MONOCYTES % 6.4 5.7 - 12.5 % 03/26/2025 3:58 PM [facility] EOSINOPHILS 2.4 0.0 - 5.6 % 03/26/2025 3:58 PM [facility] BASOPHILS 0.6 0.0 - 1.3 % 03/26/2025 3:58 PM TECHNOLOGY ENGINEER [facility] ABS. NEUTROPHILS 6.84(H) 1.40 - 6.00 x10'3/uL 03/26/2025 3:58 PM TECHNOLOGY ENGINEER [facility] IMMATURE GRANS % 0.2 0.0 - 0.5 % 03/26/2025 3:58 PM [facility] ABS. LYMPHOCYTES 0.82 0.80 - 4.70 x10'3/uL 03/26/2025 3:58 PM [facility] BLOOD VENOUS BLOOD SPECIMEN / Unknown 03/26/2025 3:52 PM TECHNOLOGY ENGINEER us Danita Zelaya MACHINE STOPPAGE FREQUENCY CHECKER LABORATORY Final Resu lt [facility] [address] [place] [address], * (ABNORMAL) BASIC METABOLIC PANEL (03/26/2025 3:52 PM TECHNOLOGY ENGINEER) GLUCOSE 92 70 - 99 MG/DL 03/26/2025 4:18 PM [facility] BUN 90(H) 7 - 18 MG/DL 03/26/2025 4:18 PM [facility] CREATININE S/P/B 6.17() 0.7 - 1.3 MG/DL 03/26/2025 4:18 PM [facility] Comment: Critical Result(s) Called at: 16:17:50 on 03/26/2025 by: Jaylene Rodriguez to and read back by:DEMI VALDEZ @ [facility] SODIUM S/P/B 139 136 - 145 MMOL/L 03/26/2025 4:18 PM [facility] POTASSIUM S/P/B 5.2(H) 3.5 - 5.1 MMOL/L 03/26/2025 4:18 PM TECHNOLOGY ENGINEER [facility] CHLORIDE S/P/B 107 100 - 108 MMOL/L 03/26/2025 4:18 PM TECHNOLOGY ENGINEER [facility] CO2 22.0 21 - 32 MMOL/L 03/26/2025 4:18 PM [facility] CALCIUM S/P/B 8.5 8.5 - 10.1 MG/DL 03/26/2025 4:18 PM [facility] ANION GAP 10.0 5 - 15 MMOL/L 03/26/2025 4:18 PM [facility] BUN CREATININE RATIO 14.6 6 - 26 03/26/2025 4:18 PM [facility] GFR ESTIMATE 9(L) >90 ML/MIN/1.7 3 M2 03/26/2025 4:18 PM [facility] Comment: NOTE: eGFR is not calculated for patients <18 years of age. This is an estimated GFR calculation using the new CKD EPI creatinine equation without race and so does not require a correction factor for race. This estimated GFR should not be used for calculating drug doses. BLOOD VENOUS BLOOD SPECIMEN / Unknown 03/26/2025 3:52 PM TECHNOLOGY ENGINEER Danita Zelaya NP LABORATORY Final Resu lt [facility] [address] [place] [address], * (ABNORMAL) URINE BACTERIA CULTURE (12/26/2024 5:00 PM CDT) SPEC DESCRIPTION URINE CLEAN CATCH 12/27/2024 9:40 AM CDT [facility] SPECIAL REQUESTS NO SPECIAL REQUEST 12/27/2024 9:40 AM CDT [facility] CULTURE RESULT >100,000 COL/ML ESCHERICHIA COLI (A) 12/29/2024 8:12 AM CDT [facility] CULTURE RESULT 10,000-49,000 COL/ML PROTEUS MIRABILIS (A) 12/29/2024 8:12 AM CDT [facility] URINE SPECIMEN OBTAINED BY CLEAN CATCH PROCEDURE / Unknown 12/26/2024 5:00 PM CDT 12/27/2024 9:47 AM CDT Narrative Organism Antibiotic Method Susceptibility Escherichia coli AMPICILLIN DOMO (VITEK) >=32: Resistant Escherichia coli AMPICILLIN/SULBACTAM DOMO (VITEK) 16: Intermediate Comment:INTERMEDIATE Escherichia coli CEFTRIAXONE DOMO (VITEK) <=1: Sensitive Escherichia coli CEFTAZIDIME DOMO (VITEK) <=1: Sensitive Escherichia coli CEFAZOLIN DOMO (VITEK) <=4: Sensitive Escherichia coli ESBL DOMO (VITEK) NEG: Sensitive Escherichia coli NITROFURANTOIN DOMO (VITEK) <=16: Sensitive Escherichia coli GENTAMICIN DOMO (VITEK) <=1: Sensitive Escherichia coli LEVOFLOXACIN DOMO (VITEK) <=0.12: Sensitive Escherichia coli PIPERACILLIN/TAZOBACTAM DOMO (VITEK) <=4: Sensitive Escherichia coli TRIMETH-SULFAMETH. DOMO (VITEK) 80: Resistant Proteus mirabilis AMPICILLIN DOMO (VITEK) <=2: Sensitive Proteus mirabilis AMPICILLIN/SULBACTAM DOMO (VITEK) <=2: Sensitive Proteus mirabilis CEFTRIAXONE DOMO (VITEK) <=1: Sensitive Proteus mirabilis CEFTAZIDIME DOMO (VITEK) <=1: Sensitive Proteus mirabilis CEFAZOLIN DOMO (VITEK) <=4: Sensitive Proteus mirabilis NITROFURANTOIN DOMO (VITEK) 128: Resistant Proteus mirabilis GENTAMICIN DOMO (VITEK) <=1: Sensitive Proteus mirabilis LEVOFLOXACIN DOMO (VITEK) 1: Intermediate Comment:INTERMEDIATE Proteus mirabilis PIPERACILLIN/TAZOBACTAM DOMO (VITEK) <=4: Sensitive Proteus mirabilis TRIMETH-SULFAMETH. DOMO (VITEK) <=20: Sensitive us Danita Zelaya NP MICROBIOLOGY - GENERAL ORD ERABLES Final Result [facility] [address] [place] [address], [place] [phone] [facility] [address] [place] [address], [place] [phone] * (ABNORMAL) URINALYSIS, AUTO, COMPLETE (12/26/2024 5:00 PM CDT) COLOR (U) YELLOW 12/27/2024 10:14 AM CDT [facility] TRANSPARENCY CLOUDY 12/27/2024 10:14 AM CDT [facility] SPECIFIC GRAVITY (U) 1.015 1.000 - 1.030 12/27/2024 10:14 AM CDT [facility] U PH 6.0 5.0 - 9.0 12/27/2024 10:14 AM T [facility] LEUKOCYTES (U) 3+(A) NEGATIVE 12/27/2024 10:14 AM CDT [facility] NITRITES POSITIVE(A) NEGATIVE 12/27/2024 10:14 AM T [facility] PROTEIN RANDOM (U) 2+(A) NEGATIVE 12/27/2024 10:14 AM T [facility] GLUCOSE (U) NEGATIVE NEGATIVE 12/27/2024 10:14 AM T [facility] KETONES MG/DL (U) NEGATIVE NEGATIVE 12/27/2024 10:14 AM T [facility] BILIRUBIN (U) NEGATIVE NEGATIVE 12/27/2024 10:14 AM CDT [facility] BLOOD (U) 2+(A) NEGATIVE 12/27/2024 10:14 AM CDT [facility] WBC/HPF 50-100 0 - 5 /HPF 12/27/2024 10:14 AM CDT [facility] RBC/HPF 10-25 0 - 5 /HPF 12/27/2024 10:14 AM CDT [facility] EPI/HPF FEW /HPF 12/27/2024 10:14 AM CDT [facility] BACTERIA (U) MANY /HPF 12/27/2024 10:14 AM CDT [facility] URINE TODD WBC CLUMPS PRESENT 12/27/2024 10:14 AM CDT [facility] URINE SPECIMEN OBTAINED BY CLEAN CATCH PROCEDURE / Unknown 12/26/2024 5:00 PM CDT us Danita Zelaya MACHINE STOPPAGE FREQUENCY CHECKER URINE ORDERABLES Final Res ult [facility] [address] [place] [address], * CT ABD+PEL WO CON (02/17/2024 8:57 PM CDT) Anatomical Region Laterality Modality Abdomen Computed Tomogra phy 02/17/2024 9:11 PM CDT Impressions 02/17/2024 9:30 PM CDT IMPRESSION: 1. Gan catheter in a decompressed urinary bladder, with small volume intraluminal gas present secondary to instrumentation versus infectious etiology. Please note that noncontrast CT does not reliably detect acute pyelonephritis or cystitis. 2. 0.3 cm nonobstructing right renal calculus. No evidence of ureteral calculi or obstructive uropathy. 3. Possible fecal impaction in the rectum. Findings appear similar to prior CT. 4. Colonic diverticulosis. 5. Unchanged 0.5 cm left lower lobe nodule. Optional follow-up CT in 12 months. 6. Other chronic/nonurgent findings, as above. Referred By: Interpreted By: Rogerio Irvin MD, 02/17/2024 9:11 PM Narrative 02/17/2024 9:30 PM CDT [facility] [address] [place] [id number] INDICATION: Right flank pain COMPARISON: CT abdomen/pelvis, 06 Jan 2024 TECHNIQUE: CT images of the abdomen and pelvis were obtained. Radiation dose reduction technique utilized. FINDINGS: Evaluation of solid organs is diminished in the absence of IV contrast. Limited visualization of the lower thorax reveals no acute abnormality. Aortic valvular calcification. Moderate coronary atherosclerosis. No significant pericardial effusion. Calcified pleural plaques at the base of the lungs, suggesting prior asbestos exposure. Unchanged 0.5 cm pulmonary nodule in left lower lobe, axial image 20. Normal size liver. No suspicious hepatic lesion by noncontrast technique. Gallbladder within normal limits. Atherosclerosis of the abdominal and pelvic vasculature. No retroperitoneal lymphadenopathy. Large stool burden in the rectum. Cecum is in unchanged atypical location, insinuated between the anterior right hemiliver and diaphragm. No evidence of complication. Normal appearing appendix in right upper quadrant. Colonic diverticulosis, most pronounced in the descending and sigmoid colon. No free gas the abdomen or pelvis. No mesenteric lymphadenopathy. Stomach and duodenum within normal limits. Normal size spleen. Incidental note of a small splenule. Pancreas is not well evaluated in the absence of IV contrast; however, no peripancreatic inflammatory change is identified. Adrenal glands within normal limits. No right hydronephrosis or hydroureter. No left hydronephrosis or hydroureter. 0.3 cm nonobstructing calculus in the inferior pole of the right kidney, unchanged. Benign-appearing renal cystic foci for which no further follow-up is recommended. Urinary bladder is decompressed with Gan catheter present. Diffuse thickening of the urinary bladder wall is again noted. Trace intraluminal gas present in the urinary bladder. Incidental note of benign pelvic phleboliths. No pelvic lymphadenopathy or significant free fluid. Chronic degenerative changes of the hips, pubic symphysis, and sacroiliac joints. Chronic multilevel degenerative changes of the spine. Visualized body wall exhibits no acute abnormality. Procedure Note Rogerio Irvin MD - 02/17/2024 [facility] [address] [place] [address] INDICATION: Right flank pain COMPARISON: CT abdomen/pelvis, 06 Jan 2024 TECHNIQUE: CT images of the abdomen and pelvis were obtained. Radiationdose reduction technique utilized. FINDINGS: Evaluation of solid organs is diminished in the absence of IV contrast. Limited visualization of the lower thorax reveals no acute abnormality.Aortic valvular calcification. Moderate coronary atherosclerosis. Nosignificant pericardial effusion. Calcified pleural plaques at the base ofthe lungs, suggesting prior asbestos exposure. Unchanged 0.5 cm pulmonarynodule in left lower lobe, axial image 20. Normal size liver. No suspicious hepatic lesion by noncontrast technique.Gallbladder within normal limits. Atherosclerosis of the abdominal and pelvic vasculature. Noretroperitoneal lymphadenopathy. Large stool burden in the rectum. Cecum is in unchanged atypical location,insinuated between the anterior right hemiliver and diaphragm. No evidenceof complication. Normal appearing appendix in right upper quadrant.Colonic diverticulosis, most pronounced in the descending and sigmoidcolon. No free gas the abdomen or pelvis. No mesenteric lymphadenopathy. Stomach and duodenum within normal limits. Normal size spleen. Incidentalnote of a small splenule. Pancreas is not well evaluated in the absence ofIV contrast; however, no peripancreatic inflammatory change is identified.Adrenal glands within normal limits. No right hydronephrosis or hydroureter. No left hydronephrosis orhydroureter. 0.3 cm nonobstructing calculus in the inferior pole of theright kidney, unchanged. Benign-appearing renal cystic foci for which nofurther follow-up is recommended. Urinary bladder is decompressed with Gan catheter present. Diffusethickening of the urinary bladder wall is again noted. Trace intraluminalgas present in the urinary bladder. Incidental note of benign pelvic phleboliths. No pelvic lymphadenopathy orsignificant free fluid. Chronic degenerative changes of the hips, pubic symphysis, and sacroiliacjoints. Chronic multilevel degenerative changes of the spine. Visualized body wall exhibits no acute abnormality. IMPRESSION: 1. Gan catheter in a decompressed urinary bladder, with small volumeintraluminal gas present secondary to instrumentation versus infectiousetiology. Please note that noncontrast CT does not reliably detect acutepyelonephritis or cystitis. 2. 0.3 cm nonobstructing right renal calculus. No evidence of ureteralcalculi or obstructive uropathy. 3. Possible fecal impaction in the rectum. Findings appear similar toprior CT. 4. Colonic diverticulosis. 5. Unchanged 0.5 cm left lower lobe nodule. Optional follow-up CT in 12months. 6. Other chronic/nonurgent findings, as above. Referred By: Interpreted By: Rogerio Irvin MD, 02/17/2024 9:11 PM Obinna Zaidi DO CT Final Res ult from Last 3 Months or Most Recently Relevant to Health Maintenance Additional Health Concerns Infection Onset Date Last Indicated ESBL - Extended Spectrum Bet a-lactamase Comment:01/06/24 +ESBL Urine 03/07/24 Urine (RR) 01/06/2024 03/07/2024 Insurance MEDICARE PART A MEDICAID [facility] Advance Directives Documents on File Type Date Recorded Patient Leakage Tester Expl anation Advance Directives and Livin g Will 01/08/2024 8:36 AM * Full Code (Latest Code Status on File) Date Activated Date Inactivated Comments 01/09/2024 3:53 PM 01/12/2024 2:29 PM * Full Code Date Activated Date Inactivated Comments 01/06/2024 7:29 PM 01/08/2024 6:04 PM Care Teams Associate Professor Of Psychology Relationship Specialty [place] [address] [place] [address] PCP - General FAMILY PRACTICE 09/13/24 [place] [address] [facility] [address] FAMILY PRACTICE 01/06/24
--- NOTE | 2025-03-26 21:50 | PC.NURSE ---
This RN heard pt fall alarm going off. Pt was prison off the bed and had ripped out his IV. New IV was placed, fluids hooked back up, EDP aware. This RN and other RN's as well as techs then administered an enema for pt. pt actively kicking and hitting. EDP aware.
[2025-03-26] MEDS: HALOPERIDOL LACTATE 5 MG/ML VIAL IM (22:25)
[2025-03-26 23:01] LABS: Anion Gap 7 mmol/L (4-12); Blood Urea Nitrogen 80 mg/dL (9-20); Calcium 8.4 mg/dL (8.4-10.2); Carbon Dioxide 17 mmol/L (22-30); Chloride 112 mmol/L (98-107); Estimated CRCL calculation 10 ml/min; Estimated Glomerular Filt Rate 10; Glucose 115 mg/dL (65-110); Potassium 4.7 mmol/L (3.4-5.0); Sodium 136 mmol/L (137-145)
[2025-03-26 23:15] LABS: Troponin I 0.013 ng/mL (0.000-0.034)
--- NOTE | 2025-03-26 23:37 | PC.NURSE ---
This RN called [facility] and gave report to Zoila VALDEZ.
[2025-03-27] MEDS: LACTULOSE 20 GM/30 ML UDC PO (00:05)
== END 2025-03-27 00:24 ==
PROVIDERS: Emergency Provider Student in an Organized Health Care Education/Training Program; PCP Family Medicine
DX: I12.9 Hypertensive chronic kidney disease with stage 1 through stage 4 chronic kidney disease, or unspecified chronic kidney disease (principal); N18.4 Chronic kidney disease, stage 4 (severe); E86.0 Dehydration; K56.41 Fecal impaction; Z20.822 Contact with and (suspected) exposure to COVID-19; J44.9 Chronic obstructive pulmonary disease, unspecified; K21.9 Gastro-esophageal reflux disease without esophagitis; I45.2 Bifascicular block; R94.31 Abnormal electrocardiogram [ECG] [EKG]; I51.7 Cardiomegaly; R93.0 Abnormal findings on diagnostic imaging of skull and head, not elsewhere classified
CPT/HCPCS: 36415; 70450; 71250; 74176; 80048; 80053; 81001; 82550; 83690; 83735; 84443; 84484; 85025; 85610; 85730; 87086; 87186; 87637; 93005; 96360; 96361; 96372; 99284; A9270; J1630; J7030

== ENCOUNTER 2025-03-29 12:21 | Emergency (ER) | payer MEDICAID, MEDICARE, SELFPAY ==
[2025-03-29] VITALS (13 sets, daily range): BP systolic 150–160; BP diastolic 73–79; PULSE 70–85; RESP 14–23; TEMP 36.7; O2SAT 99–100
--- NOTE | ~2025-03-29 | CT_ITS ---
EXAMINATION: CT brain wo con, 03/29/2025 13:40 SENIOR BIOSTATISTICIAN HISTORY: AMS COMPARISON: No comparisons available. Technique: Axial images obtained of the brain without contrast. One or more of the following dose reduction techniques were used: automated exposure control, adjustment of the mA and/or kV according to patient size, use of iterative reconstruction technique. Findings: No acute infarct or parenchymal hemorrhage. No abnormal mass or mass effect. No midline shift. No extra-axial fluid collections. No hydrocephalus. Mastoid air cells unremarkable. Sinuses and orbits unremarkable. No acute fracture. No significant facial or scalp soft tissue swelling evident. No radiopaque foreign body is seen. Impression: 1.No acute intracranial abnormality. Reviewed, dictated and finalized at location P. OR BIOSTATISTICIAN Impression: 1.No acute intracranial abnormality.
--- NOTE | 2025-03-29 13:23 | ECG_ITS ---
Test Date: 2025-03-29 13:35:55 Measurements Intervals [place] Rate: 74 P: 48 TN: 189 QRS: -61 QRSD: 141 T: 48 QT: 395 QTc: 439 Interpretive Statements SINUS RHYTHM RIGHT BUNDLE BRANCH BLOCK LEFT ANTERIOR FASCICULAR BLOCK MINIMAL Q WAVES- ANTEROLAT/HIGH LAT LEADS BASELINE ARTIFACT- I, II, AVR, AVL, AVF, V1-V4 ABNORMAL ECG Compared to ECG 03/26/2025 19:43:55 NO SIGNIFICANT CHANGE Electronically Signed On 03-29-2025 15:27:03 COMPLIANCE ADMINISTRATOR by Jefferson Valenzuela D.O.
[2025-03-29] MEDS: SODIUM CHLORIDE 0.9% IV 1,000 ML 999 ML IV CONT (13:33)
[2025-03-29 13:44] LABS: Hematocrit 30.1 % (42.0-52.0); Hemoglobin 10.0 g/dL (14.0-18.0); Immature Granulocyte Percent A 0.5 % (0-0.5); Lymphocytes Absolute Auto 0.72 K/mm3 (0.9-3.2); Mean Corpuscular HGB Conc 33.2 g/dl (32-36); Mean Corpuscular Hemoglobin 30.4 pg (26-34); Mean Corpuscular Volume 91.5 fl (80-100); Nucleated Red Blood Cells Absolute Auto 0.000 K/mm3 (0.0-0.012); Nucleated Red Blood Cells Perc 0.0 % (0.0-0.2); Platelet Count Result 205 k/mm3 (150-375); Red Blood Count 3.29 M/mm3 (4.6-6.20); White Blood Count 12.9 K/mm3 (4.5-10.0)
--- OUTSIDE RECORDS SUMMARY | 2025-03-29 13:46 | XMS_ITS | Encounter Summary ---
Author Organization [facility] Address [facility] [place] [address] Care Team Providers Care Electric Operator Name Role Phone Alireza Lawrence MD Unavailable [phone] Alireza Lawrence MD Primary Care Provider [phone] Encounter Details Date Type Department Care Team (Late st Contact Info) Description 03/26/2025 Orders Only [facility] [address] [place], [place] [id number] Danita Zelaya BENCH PRECISION ASSEMBLER [address] [place] [address] [id number] Social History Tobacco Use Types Packs/Day Years Used Date Smoking Tobacco: Former Cigarettes Q uit: 1984 Smokeless Tobacco: Never Alcohol Use Standard Drinks/Week Comments Not Currently 0 (1 standard drink = 0.6 oz pur e alcohol) [facility] Utilities Answer Date Recorded In the past 12 months has [employer], gas, oil, or water [employer] threatened to shut off services in your [...] any time in the past 12 m [facility], were you homeless or living in a fci (including now)? No 01/09/2024 Sex and Gender Information Value Date Recorded Sex Assigned at Male 01/14/2025 2:04 PM CDT Legal Sex Male 6:10 PM MYSQL DATABASE ADMINISTRATOR Gender Identity Male 01/14/2025 2:04 PM CDT [...] * (ABNORMAL) VALPROIC ACID (03/26/2025 3:52 PM MYSQL DATABASE ADMINISTRATOR) Pathologist [facility] VALPROIC ACID 7.1(L) 50 - 100 MCG/ML 03/26/2025 7:41 PM MYSQL DATABASE ADMINISTRATOR [facility] Comment: THERAPEUTIC: 50-100 TOXIC: >150 BLOOD VENOUS BLOOD SPECIMEN / Unknown 03/26/2025 3:52 PM MYSQL DATABASE ADMINISTRATOR us Danita Zelaya BENCH PRECISION ASSEMBLER LABORATORY Final Resu lt [facility] [address] [place] [address], [place] [phone] * (ABNORMAL) CBC W/DIFF (03/26/2025 3:52 PM MYSQL DATABASE ADMINISTRATOR) [facility] WBC 8.47 4.4 - 11.0 x10'3/uL 03/26/2025 3:58 PM [facility] RBC 3.20(L) 4.50 - 5.90 x10'6/uL 03/26/2025 3:58 PM [facility] HGB 9.6(L) 14.0 - 17.5 G/DL 03/26/2025 3:58 PM [facility] HCT 29.2(L) 41.5 - 50.4 % 03/26/2025 3:58 PM [facility] MCV 91.3 80.0 - 96.0 FL 03/26/2025 3:58 PM [facility] MCH 30.0 26.5 - 31.4 PG 03/26/2025 3:58 PM [facility] MCHC 32.9 31.9 - 34.8 G/DL 03/26/2025 3:58 PM [facility] RDW 13.2 12.3 - 14.3 % 03/26/2025 3:58 PM [facility] PLT 170 151 - 353 x10'3/uL 03/26/2025 3:58 PM [facility] MPV 9.9 9.7 - 11.9 FL 03/26/2025 3:58 PM [facility] RBC MORPHOLOGY NORMAL 03/26/2025 3:58 PM [facility] PLT MORPH. NORMAL 03/26/2025 3:58 PM [facility] WBC MORPHOLOGY NORMAL 03/26/2025 3:58 PM [facility] LYMPHOCYTES % 9.7(L) 15.8 - 45.0 % 03/26/2025 3:58 PM [facility] NEUTROPHILS % 80.7(H) 42.1 - 71.9 % 03/26/2025 3:58 PM MYSQL DATABASE ADMINISTRATOR [facility] MONOCYTES % 6.4 5.7 - 12.5 % 03/26/2025 3:58 PM [facility] EOSINOPHILS 2.4 0.0 - 5.6 % 03/26/2025 3:58 PM [facility] BASOPHILS 0.6 0.0 - 1.3 % 03/26/2025 3:58 PM [facility] ABS. NEUTROPHILS 6.84(H) 1.40 - 6.00 x10'3/uL 03/26/2025 3:58 PM [facility] IMMATURE GRANS % 0.2 0.0 - 0.5 % 03/26/2025 3:58 PM [facility] ABS. LYMPHOCYTES 0.82 0.80 - 4.70 x10'3/uL 03/26/2025 3:58 PM [facility] BLOOD VENOUS BLOOD SPECIMEN / Unknown 03/26/2025 3:52 PM MYSQL DATABASE ADMINISTRATOR us Danita Zelaya NP LABORATORY Final Resu lt [facility] [address] [place] [address], * (ABNORMAL) BASIC METABOLIC PANEL (03/26/2025 3:52 PM MYSQL DATABASE ADMINISTRATOR) GLUCOSE 92 70 - 99 MG/DL 03/26/2025 4:18 PM MYSQL DATABASE ADMINISTRATOR [facility] BUN 90(H) 7 - 18 MG/DL 03/26/2025 4:18 PM [facility] CREATININE S/P/B 6.17(HH) 0.7 - 1.3 MG/DL 03/26/2025 4:18 PM [facility] Comment: Critical Result(s) Called at: 16:17:50 on 03/26/2025 by: Jaylene Rodriguez to and read back by:DEMI VALDEZ @ [facility] SODIUM S/P/B 139 136 - 145 MMOL/L 03/26/2025 4:18 PM [facility] POTASSIUM S/P/B 5.2(H) 3.5 - 5.1 MMOL/L 03/26/2025 4:18 PM [facility] CHLORIDE S/P/B 107 100 - 108 MMOL/L 03/26/2025 4:18 PM [facility] CO2 22.0 21 - 32 MMOL/L 03/26/2025 4:18 PM [facility] CALCIUM S/P/B 8.5 8.5 - 10.1 MG/DL 03/26/2025 4:18 PM [facility] ANION GAP 10.0 5 - 15 MMOL/L 03/26/2025 4:18 PM [facility] BUN CREATININE RATIO 14.6 6 - 26 03/26/2025 4:18 PM [facility] GFR ESTIMATE 9(L) >90 ML/MIN/1.7 3 M2 03/26/2025 4:18 PM [facility] Comment: NOTE: eGFR is not calculated for patients <18 years of age. This is an estimated GFR calculation using the new CKD EPI creatinine equation without race and so does not require a correction factor for race. This estimated GFR should not be used for calculating drug doses. BLOOD VENOUS BLOOD SPECIMEN / Unknown 03/26/2025 3:52 PM MYSQL DATABASE ADMINISTRATOR us Daniat Zelaya NP LABORATORY Final Resu lt [facility] [address] [place] [address], [place] [phone] documented in this encounter Visit Diagnoses Diagnosis Encounter for therapeutic drug monitoring- Primary documented in this encounter Additional Health Concerns Infection Onset Date Last Indicated Resolved Time ESBL - Extended Spectrum Bet a-lactamase Comment:01/06/24 +ESBL Urine 03/07/24 Urine (RR) 01/06/2024 03/07/2024 Assessment Noted Time PHQ-9 Depression Total Score: 3 10/04/19 24 1:27 PM CDT documented as of this encounter Care Teams Electric Operator Relationship Specialty [place] [address] [place] [address] PCP - General FAMILY PRACTICE 09/13/24 [place] [address] [place] [address] FAMILY PRACTICE 01/06/24 documented as of this encounter
--- OUTSIDE RECORDS SUMMARY | 2025-03-29 13:46 | XMS_ITS | Clinical Summary ---
Author Organization [facility] Address [address] [place] [address] Care Team Providers Care Digital Solutions Architect Name Role Phone Alireza Lawrence MD Unavailable [...] (01/06/2024): Added automatically from request for surgery [id number] Acute cystitis 08/13/2021 Cystitis with hematuria 08/12/2021 [...] (01/06/2024): Added automatically from request for surgery [id number] Hypertension Hyperlipidemia Anxiety Encounters Date Type Department Care Team Description 03/26/2025 3:44 PM DONOR FLOOR TECHNICIAN - 03/26/2025 11:59 PM DONOR FLOOR TECHNICIAN Hospital Encounter [facility] [address] [place] [address] Danita Zelaya NP Discharge Disposition: Home or Self Care (Routine Discharge) 03/26/2025 Scan [facility] INFO SRVCS Scanned, Doc Med Group CT (SCAN) 03/26/2025 Orders Only [facility] [address] [place], [place] [id number] Danita Zelaya, BAND CUTTER 03/11/2025 1:40 PM DONOR FLOOR TECHNICIAN [facility] Family & Internal Medicine [facility] [address] [place] [address] Alireza Lawrence MD [facility] (Routine C) 02/15/2025 4:00 PM CDT - 02/15/2025 9:21 PM CDT Emergency [facility] Emergency Room [address] [place] [address] Nikita Osborne MD Palmer, Aunaly E, MD Medical Screening Discharge Disposition: Home or Self Care (Routine Discharge) 02/15/2025 Travel 01/14/2025 3:00 PM CDT [facility] Family & Internal Medicine [facility] [address] [place] [phone] Alireza Lawrence MD [facility] (routine) from Last 3 Months Immunizations Immunization Administration Dates Next Due Abrysvo Respiratory Syncytial Virus (RSV) 0.5 mL , PF 05/12/2023 PFIZER COVID-19 (ORIGINAL FO RMULATION, PURPLE CAP) mRNA, LNP-S, PF, 30 MCG/0.3 ML DOSE 11/26/2020,11/05/2020 Family History Relation Status Comments Father Mother Social History Tobacco Use Types Packs/Day Years Used Date Smoking Tobacco: Former Cigarettes Q uit: 1983 Smokeless Tobacco: Never Tobacco Cessation:Counseling Given: No Alcohol Use Standard Drinks/Week Comments Not Currently 0 (1 standard drink = 0.6 oz pur e alcohol) [facility] Utilities Answer Date Recorded In the past 12 months has e [email or web address], gas, oil, or water [employer] threatened to shut off services in your [...] money to buy more. Never true 01/09/20 24 Within the past 12 months, t he [...] any time in the past [address] [facility], were you homeless or living in a usp (including now)? No 01/09/2024 Sex and Gender Information Value Date Recorded Sex Assigned at Male 01/14/2025 2:04 PM CDT Legal Sex Male 6:10 PM DONOR FLOOR TECHNICIAN Gender Identity Male 01/14/2025 2:04 PM CDT Sexual Orientation Not on file Last Filed Vital Signs Vital Sign Reading Time Taken Comments Blood Pressure 129/68 03/10/2025 9:36 AM DONOR FLOOR TECHNICIAN Pulse 79 03/10/2025 9:36 AM DONOR FLOOR TECHNICIAN Temperature 36.6 C (97.8 F) 03/10/2025 9:36 AM DONOR FLOOR TECHNICIAN Respiratory Rate 18 03/10/2025 9:36 AM DONOR FLOOR TECHNICIAN Oxygen Saturation 97% 03/10/2025 9:36 AM DONOR FLOOR TECHNICIAN Inhaled Oxygen Concentration - - Weight 60.8 kg (134 lb) 03/10/2025 9:36 AM DONOR FLOOR TECHNICIAN Height 172.7 cm (5' 8) 03/10/2025 9:36 AM DONOR FLOOR TECHNICIAN Body Mass Index 20.37 03/10/2025 9:36 AM DONOR FLOOR TECHNICIAN Plan of Treatment Health Maintenance Due Date [...] 12/17, 09/27/2022, Additional history exists PHQ-2 (Physician [place]) Completed 03/10/2025 Hepatitis A Vaccines Aged Out [...] in care transitions and discharge planning Lifestyle Kiana Waters customer service representative Procedure Name Priority Date/Time Associated Diagnosis Comments BASIC METABOLIC PANEL Routine 03/26/2025 3:52 PM DONOR FLOOR TECHNICIAN Encounter for therapeutic drug monitoring HC CBC AUTO W/AUTO DIFF Routine 03/26/2025 3:52 PM DONOR FLOOR TECHNICIAN Encounter for therapeutic drug monitoring VALPROIC ACID Routine 03/26/2025 3:52 PM DONOR FLOOR TECHNICIAN Encounter for therapeutic drug monitoring CT GENERIC 03/26/2025 CT GENERIC 03/26/2025 CT ABD+PEL WO CON STAT 02/17/2024 8:5 7 PM CDT from Last 3 Months or Most Recently Relevant to Health Maintenance Results * (ABNORMAL) VALPROIC ACID (03/26/2025 3:52 PM DONOR FLOOR TECHNICIAN) [facility] VALPROIC ACID 7.1(L) 50 - 100 MCG/ML 03/26/2025 7:41 PM DONOR FLOOR TECHNICIAN [facility] Comment: THERAPEUTIC: 50-100 TOXIC: >150 BLOOD VENOUS BLOOD SPECIMEN / Unknown 03/26/2025 3:52 PM DONOR FLOOR TECHNICIAN us Danita Zelaya BAND CUTTER LABORATORY Final Resu lt [facility] [address] [place] [address], [place] [phone] * (ABNORMAL) CBC W/DIFF (03/26/2025 3:52 PM DONOR FLOOR TECHNICIAN) [facility] WBC 8.47 4.4 - 11.0 x10'3/uL 03/26/2025 3:58 PM DONOR FLOOR TECHNICIAN [facility] RBC 3.20(L) 4.50 - 5.90 x10'6/uL 03/26/2025 3:58 PM DONOR FLOOR TECHNICIAN [facility] HGB 9.6(L) 14.0 - 17.5 G/DL 03/26/2025 3:58 PM DONOR FLOOR TECHNICIAN [facility] HCT 29.2(L) 41.5 - 50.4 % 03/26/2025 3:58 PM DONOR FLOOR TECHNICIAN [facility] MCV 91.3 80.0 - 96.0 FL 03/26/2025 3:58 PM DONOR FLOOR TECHNICIAN [facility] MCH 30.0 26.5 - 31.4 PG 03/26/2025 3:58 PM DONOR FLOOR TECHNICIAN [facility] MCHC 32.9 31.9 - 34.8 G/DL 03/26/2025 3:58 PM [facility] RDW 13.2 12.3 - 14.3 % 03/26/2025 3:58 PM [facility] PLT 170 151 - 353 x10'3/uL 03/26/2025 3:58 PM [facility] MPV 9.9 9.7 - 11.9 FL 03/26/2025 3:58 PM [facility] RBC MORPHOLOGY NORMAL 03/26/2025 3:58 PM [facility] PLT MORPH. NORMAL 03/26/2025 3:58 PM [facility] WBC MORPHOLOGY NORMAL 03/26/2025 3:58 PM [facility] LYMPHOCYTES % 9.7(L) 15.8 - 45.0 % 03/26/2025 3:58 PM [facility] NEUTROPHILS % 80.7(H) 42.1 - 71.9 % 03/26/2025 3:58 PM [facility] MONOCYTES % 6.4 5.7 - 12.5 % 03/26/2025 3:58 PM [facility] EOSINOPHILS 2.4 0.0 - 5.6 % 03/26/2025 3:58 PM [facility] BASOPHILS 0.6 0.0 - 1.3 % 03/26/2025 3:58 PM [facility] ABS. NEUTROPHILS 6.84(H) 1.40 - 6.00 x10'3/uL 03/26/2025 3:58 PM [facility] IMMATURE GRANS % 0.2 0.0 - 0.5 % 03/26/2025 3:58 PM [facility] ABS. LYMPHOCYTES 0.82 0.80 - 4.70 x10'3/uL 03/26/2025 3:58 PM [facility] BLOOD VENOUS BLOOD SPECIMEN / Unknown 03/26/2025 3:52 PM DONOR FLOOR TECHNICIAN us Danita Zelaya BAND CUTTER LABORATORY Final Resu lt [facility] [address] [place] [id number], [place] [phone] * (ABNORMAL) BASIC METABOLIC PANEL (03/26/2025 3:52 PM DONOR FLOOR TECHNICIAN) Pathologist [facility] GLUCOSE 92 70 - 99 MG/DL 03/26/2025 4:18 PM [facility] BUN 90(H) 7 - 18 MG/DL 03/26/2025 4:18 PM [facility] CREATININE S/P/B 6.17(HH) 0.7 - 1.3 MG/DL 03/26/2025 4:18 PM [facility] Comment: Critical Result(s) Called at: 16:17:50 on 03/26/2025 by: Jaylene Rodriguez to and read back by:DEMI VALDEZ @ [facility] SODIUM S/P/B 139 136 - 145 MMOL/L 03/26/2025 4:18 PM [facility] POTASSIUM S/P/B 5.2(H) 3.5 - 5.1 MMOL/L 03/26/2025 4:18 PM [facility] CHLORIDE S/P/B 107 100 - 108 MMOL/L 03/26/2025 4:18 PM [facility] CO2 22.0 21 - 32 MMOL/L 03/26/2025 4:18 PM [facility] CALCIUM S/P/B 8.5 8.5 - 10.1 MG/DL 03/26/2025 4:18 PM [facility] ANION GAP 10.0 5 - 15 MMOL/L 03/26/2025 4:18 PM DONOR FLOOR TECHNICIAN [facility] BUN CREATININE RATIO 14.6 6 - 26 03/26/2025 4:18 PM DONOR FLOOR TECHNICIAN [facility] GFR ESTIMATE 9(L) >90 ML/MIN/1.7 3 M2 03/26/2025 4:18 PM DONOR FLOOR TECHNICIAN [facility] Comment: NOTE: eGFR is not calculated for patients <18 years of age. This is an estimated GFR calculation using the new CKD EPI creatinine equation without race and so does not require a correction factor for race. This estimated GFR should not be used for calculating drug doses. BLOOD VENOUS BLOOD SPECIMEN / Unknown 03/26/2025 3:52 PM DONOR FLOOR TECHNICIAN Danita Zelaya BAND CUTTER LABORATORY Final Resu lt [facility] [address] [place] [address], * CT GENERIC (03/26/2025) Only the most recent of2 resultswithin the time period is included. Anatomical Region Laterality Modality Other 03/26/2025 Doc [facility] Scanned SCANNING Final Resu lt * CT ABD+PEL WO CON (02/17/2024 8:57 [...] 9:11 PM Narrative 02/17/2024 9:30 PM CDT [facility] [address] [facility] [place] [address] INDICATION: Right flank pain COMPARISON: CT abdomen/pelvis, [...] Procedure Note Rogerio Irvin MD - 02/17/2024 [facility] [address] [place] [address] INDICATION: Right flank pain COMPARISON: CT abdomen/pelvis, [...] 01/06/2024 03/07/2024 Insurance MEDICARE PART A MEDICAID [facility] [address] OFFICE OF [facility] Advance Directives Documents on File Type Date Recorded Patient Water/Wastewater Engineer Expl anation Advance Directives and Livin g Will 01/08/2024 8:36 AM * Full Code (Latest Code Status on File) Date Activated Date Inactivated Comments 01/09/2024 3:53 PM 01/12/2024 2:29 PM * Full Code Date Activated Date Inactivated Comments 01/06/2024 7:29 PM 01/08/2024 6:04 PM Care Teams Digital Solutions Architect Relationship Specialty [place] [address] [place] [address] PCP - General FAMILY PRACTICE 09/13/24 [place] [address] [place] [address] FAMILY PRACTICE 01/06/24
--- OUTSIDE RECORDS SUMMARY | 2025-03-29 13:46 | XMS_ITS | Encounter Summary ---
Author Organization [facility] Address [facility] [place] [address] Care Team Providers Care Pig Iron Loader Name Role Phone Alireza Lawrence MD Unavailable [phone] Alireza Lawrence MD Primary Care Provider [phone] Reason for Visit * Reason Comments CT (SCAN) Encounter Details Date Type Department Care Team (Latest Contact Info) Description 03/26/2025 Scan HEALTH INFO SRVCS Scanned, Doc Med Group CT (SCAN) Social History Tobacco Use Types Packs/Day Years Used Date Smoking Tobacco: Former Cigarettes Q uit: 1984 Smokeless Tobacco: Never Alcohol Use Standard Drinks/Week Comments Not Currently 0 (1 standard drink = 0.6 oz pur e alcohol) [facility] Utilities Answer Date Recorded In the past 12 months has [employer], gas, oil, or water [employer] threatened to shut off services in your [...] time in the past 12 [facility], were you homeless or living in a nursing home (including now)? No 01/09/2024 Sex and Gender Information Value Date Recorded Sex Assigned at Male 01/14/2025 2:04 PM CDT Legal Sex Male 6:10 PM COUNTER CASER Gender Identity Male 01/14/2025 2:04 PM CDT [...] Assessment Author Status No 01/09/2024 1:03 PM LILLIET Kimberly Avendaño RN Active * Do you have serious difficulty walking or climbing stairs? Answer Date of Assessment Author Status No 01/09/2024 1:03 PM CDT Kimberly Avendaño RN Active * Do you have difficulty dressing or bathing? Answer Date of Assessment Author Status Yes 01/09/2024 1:03 PM LILLIET Kimberly Avendaño RN Active * Because of a physical, mental, or emotional condition, do you have difficulty doing errands alone such as visiting a doctor's office or shopping? Answer Date of Assessment Author Status Yes 01/09/2024 1:03 PM LILLIET Kimberly Avendaño RN Active documented as of this encounter Mental Status * Because of a physical, mental, or emotional condition, do you have serious difficulty concentrating, remembering, or making decisions? Answer Entry Date Author Status Yes 01/09/2024 1:03 PM LILLIET Kimberly Avendaño RN Active documented in this encounter Plan of Treatment Not on file documented as of this encounter Goals Goal Patient Goal Type Associated Problems Recent Progress Patient-Stated? Author Family - family caregiver with be involved in care transitions and discharge planning Lifestyle No Kiana Bowen RN documented as of this encounter Procedures Procedure Name Priority Date/Time Associated Diagnosis Comments CT GENERIC 03/26/2025 CT GENERIC 03/26/2025 documented in this encounter Results * CT GENERIC (03/26/2025) Anatomical Region Laterality Modality Other 03/26/2025 us frenting Med Group Scanned SCANNING Final Resu lt * CT GENERIC (03/26/2025) Anatomical Region Laterality Modality Other 03/26/2025 us Doc [facility] Scanned SCANNING Final Resu lt documented in this encounter Visit Diagnoses Not on filedocumented in this encounter Additional Health Concerns Infection Onset Date Last Indicated Resolved Time ESBL - Extended Spectrum Bet a-lactamase Comment:01/06/24 +ESBL Urine 03/07/24 Urine (RR) 01/06/2024 03/07/2024 Assessment Noted Time PHQ-9 Depression Total Score: 3 10/04/19 24 1:27 PM CDT documented as of this encounter Care Teams Pig Iron Loader Relationship Specialty [place] [address] [place] [address] PCP - General FAMILY PRACTICE 09/13/24 [place] [address] [facility] [place] [address] FAMILY PRACTICE 01/06/24 documented as of this encounter
[2025-03-29 14:02] LABS: Alanine Aminotransferase 14 U/L (6-50); Albumin Level 4.2 g/dL (3.5-5.1); Alkaline Phosphatase 77 U/L (38-126); Anion Gap 13 mmol/L (4-12); Aspartate Amino Transferase 17 U/L (17-59); Bilirubin,Total 0.5 mg/dL (0.2-1.3); Blood Urea Nitrogen 86 mg/dL (9-20); Calcium 9.2 mg/dL (8.4-10.2); Carbon Dioxide 14 mmol/L (22-30); Chloride 114 mmol/L (98-107); Estimated CRCL calculation 8 ml/min; Estimated Glomerular Filt Rate 8; Glucose 107 mg/dL (65-110); Potassium 4.6 mmol/L (3.4-5.0); Sodium 141 mmol/L (137-145); Total Protein 7.5 g/dL (6.3-8.2)
--- NOTE | 2025-03-29 15:38 | ED_ITS ---
HPI - General Adult General Chief complaint: Weakness Stated complaint: htn, weak, fall Time Seen by Provider: 03/29/25 13:23 Mode of arrival: EMS Limitations: dementia History of Present Illness HPI narrative: 75-year-old with a history of advanced dementia, ESRD [facility] with a complains of altered mental status. Per nursing patient had a fall earlier. Patient presently has no complaints. Severity: moderate Related Data Allergies Allergy/AdvReac Type Severity Reaction Status Date / Time finasteride Allergy Unknown Unknown Verified 03/26/25 19:04 hydrocodone Allergy Unknown Unknown Verified 03/26/25 19:04 hydrocortisone Allergy Unknown Unknown Verified 03/26/25 19:04 Review of Systems 2 Review of Systems: ROS unobtainable: Yes unobtainable due to mental status (dementia) Exam 2 Narrative: GENERAL: Well-appearing, well-nourished, and in no acute distress. HEAD: Normocephalic, atraumatic. EYES: PERRLA and EOMI. ENT: Nares clear, no rhinorrhea or epistaxis. Mucous membranes moist. NECK: Supple. CHEST: Clear to auscultation. No respiratory distress. HEART: Regular rate and rhythm. No murmur heard. Normal peripheral pulses. ABDOMEN: Soft, nontender, nondistended, normal active bowel sounds. EXTREMITIES: Normal range of motion. No edema. SKIN: Warm, dry, no rash. NEURO: No focal deficits. Alert and oriented x1 PSYCH: Normal mood and affect. Course Course Emergency Course: Patient has been a quite confused and agitated he had given Valium 2.5 mg. His lab work and CT is unremarkable. With [facility] back [facility]. Vital Signs Vital signs: Vital Signs Temperature 36.7 C 03/29/25 12:40 Pulse Rate 74 03/29/25 12:40 Respiratory Rate 16 03/29/25 12:40 Blood Pressure 156/73 H 03/29/25 12:40 Pulse Oximetry 100 03/29/25 12:40 Oxygen Delivery Room Air 03/29/25 12:40 Temperature 36.7 C 03/29/25 12:40 Pulse Rate 80 03/29/25 16:38 Respiratory Rate 16 03/29/25 16:38 Blood Pressure 158/78 H 03/29/25 16:38 Pulse Oximetry 99 03/29/25 16:38 Oxygen Delivery Room Air 03/29/25 12:40 MDM Differential Diagnosis Differential Diagnosis: Dementia , head injury ,electrolyte imbalnce Medical Records I have reviewed the following patient records and this information was taken into consideration when formulating the assessment and plan.: previous labs, previous ER visits and previous hospitalizations Lab Data 03/29/25 13:39 03/29/25 13:39 Labs: Lab Results 03/29/25 03/29/25 Range/Units 13:39 15:44 WBC 12.9 H (4.5-10.0) K/mm3 RBC 3.29 L (4.6-6.20) M/mm3 Hgb 10.0 L (14.0-18.0) g/dL Hct 30.1 L (42.0-52.0) % MCV 91.5 (80-100) fl MCH 30.4 (26-34) pg MCHC 33.2 (32-36) g/dl RDW 13.5 (11.5-14.5) % Plt Count 205 (150-375) k/mm3 MPV 10.0 (7.4-10.4) fl Immature Gran % (Auto) 0.5 (0-0.5) % Neut % (Auto) 84.7 H (45.5-73.1) % Lymph % (Auto) 5.6 L (18.3-44.2) % Dyer % (Auto) 8.0 (2.6-8.5) % Eos % (Auto) 0.9 (0-4.4) % Baso % (Auto) 0.3 (0.2-1.2) % Lymph # (Auto) 0.72 L (0.9-3.2) K/mm3 Dyer # (Auto) 1.0 H (0.1-0.6) K/mm3 Eos # (Auto) 0.1 (0-0.3) K/mm3 Baso # (Auto) 0.0 (0.0-0.1) K/mm3 Abs Immat Gran (auto) 0.06 H (0.00-0.031) K/mm3 Absolute Neuts (auto) 10.9 H (1.3-6.7) K/mm3 Absolute Nucleated RBC 0.000 (0.0-0.012) K/mm3 Nucleated RBC % 0.0 (0.0-0.2) % Sodium 141 (137-145) mmol/L Potassium 4.6 (3.4-5.0) mmol/L Chloride 114 H (98-107) mmol/L Carbon Dioxide 14 L (22-30) mmol/L Anion Gap 13 H (4-12) mmol/L BUN 86 H (9-20) mg/dL Creatinine 6.61 H (0.7-1.3) mg/dL Estim Creat Clear Calc 8 ml/min Estimated GFR 8 L (59 - ) Glucose 107 (65-110) mg/dL Calcium 9.2 (8.4-10.2) mg/dL Total Bilirubin 0.5 (0.2-1.3) mg/dL AST 17 (17-59) U/L ALT 14 (6-50) U/L Alkaline Phosphatase 77 (38-126) U/L Total Protein 7.5 (6.3-8.2) g/dL Albumin 4.2 (3.5-5.1) g/dL Urine Color Yellow (Yellow) Urine Appearance Cloudy H (Clear) Urine pH 6.5 (5.0-9.0) Ur Specific [place] 1.011 (1.001-1.035) Urine Protein 2+ H (Negative) mg/dL Urine Glucose (UA) 1+ H (Negative) mg/dL Urine Ketones Negative (Negative) mg/dL Ur Blood (Man) 2+ H (Negative) Urine Nitrate Negative (Negative) Urine Bilirubin Negative (Negative) Urine Urobilinogen 0.2 (<2.0) mg/dL Add Ur Microanalysis Reviewed Leukocyte Esterase Rfl 3+ H (Negative) ROS/UL Urine RBC 6-10 H (0-2) /hpf Urine WBC >100 H (0-3) /hpf Ur Squamous Epith Cells None seen (Few) /hpf Urine Bacteria 1+ H /hpf Urine Casts 3-5 Imaging Data Radiologist's impression: ITS Impressions Head CT 03/29/25 14:21 Impression: 1.No acute intracranial abnormality. Discharge Plan Discharge Clinical Impression: End-stage renal disease (ESRD) AMS (altered mental status) Qualifiers: Altered mental status type: unspecified Qualified Code(s): R41.82 - Altered mental status, unspecified Patient Disposition: NH Half-Way/Asst Living Condition: Stable Instructions: Altered Mental Status (ED) Additional Instructions: Continue home medications, follow-up with your primary doctor Patient Language: Iranian Prescriptions: No Action lactulose 20 gram packet 20 g PO DAILY PRN (Reason: constipation) Qty: 15 0RF bisacodyl 10 mg/30 mL enema 10 mg RECTAL DAILY PRN (Reason: constipation) Qty: 37 0RF bisacodyl 10 mg suppository 10 mg RECTAL DAILY PRN (Reason: constipation) Qty: 30 0RF Follow-up/Referrals: Howard,Alireza Sanderson MD [Primary Care Provider] Time of Disposition: 15:40
[2025-03-29 16:00] LABS: Add Urine Microscopic? YES; Appearance Urine Cloudy (Clear); Glucose Urine UA 1+ mg/dL (Negative); Leukocyte Esterase Ur 3+ LEU/UL (Negative); Need Manual Microscopic Reviewed; Nitrate Urine Negative (Negative); Specific Grav Ur 1.011 (1.001-1.035)
--- NOTE | 2025-03-29 16:15 | PC.NURSE ---
PT ATTEMPTING TO GET OUT OF BED. HAS BEEN REITERATED SEVERAL TIMES HE NEEDS TO LAY BACK INTO THE BED. HE STATES I WON'T FALL AND THAT I WON''T TELL ANYONE IF I DO FALL. PT ENCOURAGED MULTIPLE TIMES TO MOVE BACK INTO BED AND IS GETTING AGITATED. DR DOMÍNGUEZ MADE AWARE. AP[facility] [place] CHARGE NURSE AT BEDSIDE TO ASSIST PT
--- NOTE | 2025-03-29 16:39 | PC.NURSE ---
pt anxious, restless. VORB FROM DR MILES VALIUM 2.5MG IVP X1
[2025-03-29] MEDS: diazePAM INJ (*CRX) 10 MG/2 ML SYRINGE (16:46)
== END 2025-03-29 17:15 ==
PROVIDERS: Emergency Provider Family Medicine; PCP Family Medicine
DX: N18.6 End stage renal disease (principal); R41.82 Altered mental status, unspecified; F03.90 Unspecified dementia, unspecified severity, without behavioral disturbance, psychotic disturbance, mood disturbance, and anxiety; I45.2 Bifascicular block
CPT/HCPCS: 36415; 70450; 80053; 81001; 85025; 87086; 87186; 93005; 96361; 96374; 99284; J3360; J7030